=== PATIENT | female | born 1955 | race Caucasian/White ===

== ENCOUNTER 2016-07-24 21:51 | Emergency (ER) | payer BC ==
[~2016-07-24] VITALS: Ht 152.4 cm; Wt 71.5 kg
[~2016-07-24 21:51] MED LIST: ASPI-664 PO; ATOR40TA68 PO; AZIT250T94 PO; BENA10TA48 PO; CHOL2000 PO; FOLI-49 PO; GABA300C16 PO; HYDR-902 PO; METO-429 PO; MOME13HF INHALATION; OMEP40CA3 PO; RES15 PO; [UNRECOGNIZED DRUG - CODE] PO
[2016-07-24 21:54] VITALS: Ht 152.4 cm; Wt 71.5 kg
[2016-07-24] MEDS ORDERED: ALBU18HF INHALATION (22:12)
[2016-07-24] MEDS ORDERED: AMO500 PO (22:12)
[2016-07-24] MEDS ORDERED: BENZ100C70 PO (22:12)
--- NOTE | 2016-07-25 00:09 | ERD ---
ER Documentation Chief Complaint Date/Time DATE: 07/25/16 TIME: 00:07 Chief Complaint cough x 1 month HPI Patient is a 60-year-old female with history of bronchitis and pneumonia presents with cough. She has had cough for the past 1 month. The sputum is green and yellow. She said that it is worsening. She tried Sudafed. She is speaking in full sentences. She had a subjective fever but did not take her temperature. She says that Zithromax does not work and once a prescription for amoxicillin. Her primary doctor is Dr. Crowe and she has a appointment tomorrow. ROS All systems reviewed and are negative except as per history of present illness. Medications Home Meds Active Scripts Benzonatate* (Tessalon Perle*) 100 Mg Capsule, 100 MG PO Q8H Y for COUGH, #20 CAP Prov:PANCHITO ANGULO MD 07/24/16 Amoxicillin* (Amoxicillin*) 500 Mg Cap, 500 MG PO TID for 10 Days, CAP Prov:PANCHITO ANGULO MD 07/24/16 Albuterol Sulfate* (Ventolin HFA*) 18 Gm Hfa.aer.ad, 2 PUFF INHALATION Q4H, #1 INHALER Prov:PANCHITO ANGULO MD 07/24/16 Azithromycin* (Zithromax*) 250 Mg Tablet, 250 MG PO .MARTA DIRECTED, #6 TAB TAKE 500 MG (2 TABS) THE FIRST DAY THEN 250 MG (1 TAB) DAYS 2-5 Prov:JUANCHO OSORIO DO 01/10/16 Hydrocodone/Acetaminophen ([place] 10-325 Tablet) 1 Each Tablet, 1 TAB PO Q6H Y for PAIN, #20 TAB Prov:JUANCHO OSORIO DO 01/10/16 Reported Medications Folic Acid* (Folic Acid*) 1 Mg Tablet, 1 MG PO DAILY, TAB 01/10/16 Tgwbzwdony-Fsvyebinnmljv-Cgniuozp* (Idvowhzoda-Yqwpgllofqfmf-Pshibjgp*) 50-325- 40 Mg Tablet, 1 TAB PO Q4H Y for PAIN, TAB 04/13/15 Mometasone-Formoterol (Dulera) 200-5 Mcg/Inh - 13 Gm Hfa.aer.ad, 2 PUFFS INHALATION BID, #1 INHALER 04/13/15 Temazepam (Restoril) 15 Mg Cap, 15 MG PO QHS Y for INSOMNIA, #30 04/13/15 Cholecalciferol* (Vitamin D3*) 2,000 Unit Cap, 2000 UNIT PO DAILY 04/13/15 Atorvastatin* (Atorvastatin*) 40 Mg Tablet, 40 MG PO HS, TAB 10/24/14 Aspirin* (Aspirin* EC) 81 Mg Tablet.dr, 81 MG PO DAILY, TAB 10/24/14 Gabapentin* (Gabapentin*) 300 Mg Capsule, 300 MG PO BID 09/06/12 Omeprazole* (Prilosec*) 40 Mg Capsule.dr, 40 MG PO DAILY 05/18/12 Benazepril Hcl* (Benazepril Hcl*) 10 Mg Tablet, 10 MG PO DAILY 05/10/12 Metoprolol Tartrate (LOPRESSOR) 50 Mg Tab, 50 MG PO DAILY 05/09/12 Allergies Allergies: Coded Allergies: metoclopramide (Verified Allergy, Mild, 01/10/16) PMhx/Soc History of Surgery: Yes (BENIGN MASS REMOVAL LEFT NECK 2008) Anesthesia Reaction: No Hx Neurological Disorder: No Hx Respiratory Disorders: Yes (PNA, BRONCHITIS) Hx Cardiac Disorders: Yes (hypertension) Hx Psychiatric Problems: No Hx Miscellaneous Medical Probl: No Hx Alcohol Use: No Hx Substance Use: No Hx Tobacco Use: No Smoking Status: Never smoker FmHx Family History: No diabetes Physical Exam Vitals Vital Signs Date Time Temp Pulse Resp B/P Pulse Ox O2 Delivery O2 Flow Rate FiO2 07/24/16 21:54 97.3 72 20 152/80 97 Physical Exam Const: Anxious Head: Atraumatic Eyes: Normal Conjunctiva ENT: Normal External Ears, Nose and Mouth. Neck: Full range of motion..~ No meningismus. Resp: Clear to auscultation bilaterally Cardio: Regular rate and rhythm, no murmurs Abd: Soft, non tender, non distended. Normal bowel sounds Skin: No petechiae or rashes Back: No midline or flank tenderness Ext: No cyanosis, or edema Neur: Awake and alert Psych: Anxious Procedures/MDM Patient is a 60-year-old female presents with what appears to be an acute bronchitis. I do not hear any signs of pneumonia and the patient is speaking in full sentences. She is anxious but I doubt pneumonia, pneumothorax, or pulmonary embolism. I believe outpatient management is appropriate. She is otherwise well-appearing and is speaking in full sentences. I will give her prescription for amoxicillin for 10 days. She will also be given a prescription for Ventolin and Tessalon Perles for cough. She can follow-up with her primary doctor tomorrow to schedule appointment. She will return for any worsening symptoms. Departure Diagnosis: Primary Impression: Bronchitis Additional Impression: Cough Condition: Fair Patient Instructions: Bronchitis, Antiobiotic Treatment (Adult) Additional Instructions: Call your primary care doctor TOMORROW for an appointment during the next 1-2 days.See the doctor sooner or return here if your condition worsens before your appointment time. PANCHITO ANGULO MD Jul 25, 2016 00:08
== END 2016-07-24 22:20 | disposition home or self-care (01) ==
LOC: FTE 21:51
DX: J20.9 Acute bronchitis, unspecified (principal); I10 Essential (primary) hypertension; Z79.82 Long term (current) use of aspirin
CPT/HCPCS: 99284

== ENCOUNTER 2016-08-22 21:28 | Emergency (ER) | payer BC ==
[~2016-08-22] VITALS: Ht 157.5 cm; Wt 70.0 kg
[~2016-08-22 21:28] MED LIST changes: +ALBU18HF INHALATION; +AMO500 PO; +BENZ100C70 PO
[2016-08-22 21:32] VITALS: Ht 157.5 cm; Wt 70.0 kg
[2016-08-22] MEDS ORDERED: LIDOCAINE 2% VISC 15 ML CUP PO ONE (23:30)
[2016-08-22 23:47] LABS: URINE BLOOD (Dip) POC 2+ (NEGATIVE)
--- NOTE | 2016-08-22 23:48 | RADRPT ---
PROCEDURE: XR Chest. CLINICAL INDICATION: Cough. TECHNIQUE: Single frontal chest x-ray. COMPARISON: Chest radiograph 01/10/2016. FINDINGS: The cardiomediastinal silhouette is unremarkable. Mild bibasilar atelectasis is noted. No pneumothorax, pleural effusion or consolidation is seen. No acute osseous abnormality is noted. IMPRESSION: 1. No acute cardiopulmonary abnormality. RPTAT: HFN .Trung Huber MD, MD Date Time Electronically viewed and signed by .Trung Huber MD, on 08/22/2016 23:47 .N/
[2016-08-23] MEDS ORDERED: AZIT250T94 PO (00:17)
[2016-08-23] MEDS ORDERED: magic mouthwash (00:17)
--- NOTE | 2016-08-23 00:25 | ERD ---
ER Documentation Chief Complaint Date/Time DATE: 08/23/16 TIME: 00:19 Chief Complaint burning tongue, cough HPI 60-year-old female with a past medical history of hypertension presents to the ED complaining of a burning sensation in her tongue and a productive cough that started intermittently 2 months ago. Reports that she try taking amoxicillin, Tessalon Perles without relief of her symptoms that was prescribed previously. Denies any recent traveling. Denies any sick contacts. Denies any chest pain, shortness of breath, abdominal pain, nausea, vomiting, dyspnea on exertion, orthopnea, leg swelling. ROS All systems reviewed and are negative except as per history of present illness. Medications Home Meds Active Scripts Azithromycin* (Zithromax*) 250 Mg Tablet, 250 MG PO .ZPACK DIRECTED, #6 TAB TAKE 500 MG (2 TABS) THE FIRST DAY THEN 250 MG (1 TAB) DAYS 2-5 Prov:STACY SNOWDNE PA-C 08/23/16 [magic mouthwash] No Conflict Check Rx: 1 Part viscous lidocaine 2% 1 Part Maalox (do not substitute Kaopectate) 1 Part diphenhydramine 12.5 mg per 5 ml elixir Quantity: 120 ml Sig: Swish, gargle, and spit one to two teaspoonfuls every six hours as needed. May be swallowed if esophageal involvement. Shake well before using. Prov:STACY SNOWDEN PA-C 08/23/16 Benzonatate* (Tessalon Perle*) 100 Mg Capsule, 100 MG PO Q8H Y for COUGH, #20 CAP Prov:PANCHITO ANGULO MD 07/24/16 Amoxicillin* (Amoxicillin*) 500 Mg Cap, 500 MG PO TID for 10 Days, CAP Prov:PANCHITO ANGULO MD 07/24/16 Albuterol Sulfate* (Ventolin HFA*) 18 Gm Hfa.aer.ad, 2 PUFF INHALATION Q4H, #1 INHALER Prov:PANCHITO ANGULO MD 07/24/16 Azithromycin* (Zithromax*) 250 Mg Tablet, 250 MG PO .ZPACK DIRECTED, #6 TAB TAKE 500 MG (2 TABS) THE FIRST DAY THEN 250 MG (1 TAB) DAYS 2-5 Prov:JUANCHO OSORIO DO 01/10/16 Hydrocodone/Acetaminophen ([place] 10-325 Tablet) 1 Each Tablet, 1 TAB PO Q6H Y for PAIN, #20 TAB Prov:JUANCHO OSORIO DO 01/10/16 Reported Medications Folic Acid* (Folic Acid*) 1 Mg Tablet, 1 MG PO DAILY, TAB 01/10/16 Ffsbksjqgf-Igyviyisecbrj-Xcuoxkeq* (Cuovmarxhx-Ktsclbmdttdnn-Acydgeco*) 50-325- 40 Mg Tablet, 1 TAB PO Q4H Y for PAIN, TAB 04/13/15 Mometasone-Formoterol (Dulera) 200-5 Mcg/Inh - 13 Gm Hfa.aer.ad, 2 PUFFS INHALATION BID, #1 INHALER 04/13/15 Temazepam (Restoril) 15 Mg Cap, 15 MG PO QHS Y for INSOMNIA, #30 04/13/15 Cholecalciferol* (Vitamin D3*) 2,000 Unit Cap, 2000 UNIT PO DAILY 04/13/15 Atorvastatin* (Atorvastatin*) 40 Mg Tablet, 40 MG PO HS, TAB 10/24/14 Aspirin* (Aspirin* EC) 81 Mg Tablet.dr, 81 MG PO DAILY, TAB 10/24/14 Gabapentin* (Gabapentin*) 300 Mg Capsule, 300 MG PO BID 09/06/12 Omeprazole* (Prilosec*) 40 Mg Capsule.dr, 40 MG PO DAILY 05/18/12 Benazepril Hcl* (Benazepril Hcl*) 10 Mg Tablet, 10 MG PO DAILY 05/10/12 Metoprolol Tartrate (LOPRESSOR) 50 Mg Tab, 50 MG PO DAILY 05/09/12 Allergies Allergies: Coded Allergies: metoclopramide (Verified Allergy, Mild, 01/10/16) PMhx/Soc History of Surgery: Yes (BENIGN MASS REMOVAL LEFT NECK 2009) Anesthesia Reaction: No Hx Neurological Disorder: No Hx Respiratory Disorders: Yes (PNA, BRONCHITIS) Hx Cardiac Disorders: Yes (hypertension) Hx Psychiatric Problems: No Hx Miscellaneous Medical Probl: No Hx Alcohol Use: No Hx Substance Use: No Hx Tobacco Use: No Smoking Status: Never smoker Physical Exam Vitals Vital Signs Date Time Temp Pulse Resp B/P Pulse Ox O2 Delivery O2 Flow Rate FiO2 08/22/16 21:32 98.2 82 20 136/95 100 Physical Exam Const: Bxn-dby-uyerwpxmr, well-nourished. In no acute distress. Head: Atraumatic, normocephalic Eyes: Normal Conjunctiva without injection. No purulent discharge. PERRL. EOMI ENT: Normal external ear. Ear canal without erythema. Tympanic membrane pearly lawson without effusion or bulging. Nasal canal clear with normal turbinates. Moist oropharynx without tonsillar exudates. Non-erythematous pharynx. Uvula midline. No drooling. No trismus. Neck: Full range of motion. No meningismus. No cervical lymphadenopathy. Resp: Clear to auscultation bilaterally. No wheezing, rhonchi, rales, or crackles. No accessory muscle use. No retractions. Cardio: Regular rate and rhythm. No murmurs, rubs or gallops. Abd: Soft, non tender, non distended. Normal bowel sounds. No palpable masses. No rebound tenderness. No guarding. Skin: No petechiae or rashes Back: No midline tenderness. No CVA tenderness. Ext: No cyanosis, or edema. Neur: Awake and alert. Psych: Normal Mood and Affect Results 24 hrs Laboratory Tests Test 08/22/16 23:47 Bedside Urine pH (LAB) 6.5 Bedside Urine Protein (LAB) 2+ Bedside Urine Glucose (UA) Negative Bedside Urine Ketones (LAB) Trace Bedside Urine Blood 2+ Bedside Urine Nitrite (LAB) Negative Bedside Urine Leukocyte Esterase (L Negative Current Medications Medications (Trade) Dose Ordered Sig/Chiara Route PRN Reason Start Time Stop Time Status Last Admin Dose Admin Lidocaine (Xylocaine (Viscous)) 15 ml ONCE ONCE PO 08/22/16 23:30 08/22/16 23:31 DC 08/23/16 00:01 Procedures/MDM 60-year-old female with a past medical history of hypertension presents to the ED complaining of a cough that started 2 days ago. Reports that her tongue started to burn. No ulcers. No cold sores. Low suspicion for HSV 1 labialis, angioedema or other emergent conditions. Patient felt better after receiving viscous lidocaine. Reports that when she coughs she feels like she has a burning sensation she is urinating. A urine dip was ordered to further evaluate patient. No leukocyte esterase, nitrite was noted. A urine culture be sent. Patient was also instructed to follow-up with her primary care physician for further evaluation and management since patient is taking benazepril. Differentials include a TARSHA inhibitor induced cough versus bronchitis. Patient states that she does get relief with Zithromax therefore that will be prescribed at this time. Patient's physical exam include lungs which were clear to auscultation and a normal pulse oximetry. There is a low suspicion for pneumonia, pneumothorax, mononucleosis, pulmonary embolism, epiglottitis, otitis media, otitis externa, viral/strep pharyngitis, sinusitis, peritonsillar abscess, mastoiditis, retropharyngeal abscess, meningitis, sepsis , acute abdomen or other emergent conditions. Fluids, rest, and symptomatic treatment are recommended for the management of patient's symptoms. Discharge medications: Zithromax, Magic Mouthwash Patient was instructed to return to the ED for any new or worsening symptoms. They should otherwise follow up with the primary care provider within 1-2 days. The patient's questions were answered at the time of discharge. Patient understood and agreed with discharge management. Departure Diagnosis: Primary Impression: Mouth symptom Additional Impression: Cough Condition: Stable Patient Instructions: Parts of the Mouth, Bronchitis, Antiobiotic Treatment ( Adult), Cough, Chronic, Uncertain Cause, (Adult) Referrals: [facility] YOU HAVE RECEIVED A MEDICAL SCREENING EXAM AND THE RESULTS INDICATE THAT YOU DO NOT HAVE A CONDITION THAT REQUIRES URGENT TREATMENT IN THE EMERGENCY DEPARTMENT. FURTHER EVALUATION AND TREATMENT OF YOUR CONDITION CAN WAIT UNTIL YOU ARE SEEN IN YOUR DOCTORS OFFICE WITHIN THE NEXT 1-2 DAYS. IT IS YOUR RESPONSIBILITY TO MAKE AN APPOINTMENT FOR FOLOW-UP CARE. IF YOU HAVE A PRIMARY DOCTOR --you should call your primary doctor and schedule an appointment IF YOU DO NOT HAVE A PRIMARY DOCTOR YOU CAN CALL OUR PHYSICIAN REFERRAL HOTLINE AT IF YOU CAN NOT AFFORD TO SEE A PHYSICIAN YOU CAN CHOSE FROM THE FOLLOWING [facility] CLINICS [facility] [address] [facility]. [facility] [address] [facility]. [facility] [address] [facility] [address] [facility]. [facility] [address] [facility]. [facility] [address] [facility]. [facility] YOU HAVE RECEIVED A MEDICAL SCREENING EXAM AND THE RESULTS INDICATE THAT YOU DO NOT HAVE A CONDITION THAT REQUIRES URGENT TREATMENT IN THE EMERGENCY DEPARTMENT. FURTHER EVALUATION AND TREATMENT OF YOUR CONDITION CAN WAIT UNTIL YOU ARE SEEN IN YOUR DOCTORS OFFICE WITHIN THE NEXT 1-2 DAYS. IT IS YOUR RESPONSIBILITY TO MAKE AN APPOINTMENT FOR FOLOW-UP CARE. IF YOU HAVE A PRIMARY DOCTOR --you should call your primary doctor and schedule and appointment IF YOU DO NOT HAVE A PRIMARY DOCTOR YOU CAN CALL OUR PHYSICIAN REFERRAL HOTLINE AT . IF YOU CAN NOT AFFORD TO SEE A PHYSICIAN YOU CAN CHOSE FROM THE FOLLOWING [facility] INSTITUTIONS: [facility] [address] [place] [address] [facility] [address] [place], [place] [id number] [place] [address] [address] [place] [address] [facility] URGENT CARE/SPECIALTIES Additional Instructions: Call your primary care doctor TOMORROW for an appointment during the next 1-2 days.See the doctor sooner or return here if your condition worsens before your appointment time. STACY SNOWDEN PA-C Aug 23, 2016 00:25
== END 2016-08-23 00:32 | disposition home or self-care (01) ==
LOC: FTE 21:28
DX: K13.29 Other disturbances of oral epithelium, including tongue (principal); R05 Cough; I10 Essential (primary) hypertension; Z79.82 Long term (current) use of aspirin
CPT/HCPCS: 71010; 81003; Z7502; Z7610

== ENCOUNTER 2016-10-27 20:00 | Emergency (ER) | payer BC ==
[~2016-10-27] VITALS: Ht 154.9 cm; Wt 69.5 kg
[~2016-10-27 20:00] MED LIST changes: +magic mouthwash
[2016-10-27 20:11] VITALS: Ht 154.9 cm; Wt 69.5 kg
[2016-10-27] MEDS ORDERED: ALBUTEROL 0.083% (NEB) 2.5 MG/3 ML AMP NEB STA (21:21)
[2016-10-27] MEDS ORDERED: IPRATROPIUM (NEB) 0.5 MG/2.5 ML AMP NEB STA (21:21)
--- NOTE | 2016-10-27 22:27 | RADRPT ---
PROCEDURE: XR Chest. CLINICAL INDICATION: Cough, bronchitis 2 months ago TECHNIQUE: PA and Lateral views of the chest were obtained. COMPARISON: 01/10/2016. FINDINGS: The cardiomediastinal silhouette is within normal limits. Changes of centrolobular emphysema. The l ungs are clear. No signs of pleural fluid or pneumothorax are seen. The osseous structures and soft tissues are unremarkable. IMPRESSION: No evidence for active cardiopulmonary disease. RPTAT: [facility]U Physician Marilu Date Time Electronically viewed and signed by Physician Marilu on 10/27/2016 22:27 RS/
[2016-10-27 23:06] LABS: URINE BLOOD (Dip) POC 2+ (NEGATIVE)
--- NOTE | 2016-10-27 23:40 | ERD ---
ER Documentation Chief Complaint Date/Time DATE: 10/27/16 TIME: 23:37 Chief Complaint cough x 5 days HPI Cough 1 week, productive for green sputum. Patient reports sinus pain, sore throat, and shortness of breath with voice changing. Patient also reports that she is coughing so hard she is having stress incontinence. Patient reports history of bronchitis approximately 4 weeks ago. Patient reports following plan of care with azithromycin, albuterol with improvement of symptoms while on antibiotics but symptoms returned after antibiotic course is complete. Patient has secondary complaint of dysuria starting today. Denies any hematuria , nausea, or vomiting. Patient denies back pain. Shortness of breath, palpitations, or dizziness. ROS All systems reviewed and are negative except as per history of present illness. Medications Home Meds Active Scripts [robutussin ac] No Conflict Check, 5 ML PO Q4 Y for cough and ST, #120 Prov:BETTINA,ANKUR 10/27/16 Amoxicillin* (Amoxicillin*) 500 Mg Cap, 500 MG PO TID for 10 Days, CAP Prov:BETTINA,ANKUR 10/27/16 Azithromycin* (Zithromax*) 250 Mg Tablet, 250 MG PO .ZPACK DIRECTED, #6 TAB TAKE 500 MG (2 TABS) THE FIRST DAY THEN 250 MG (1 TAB) DAYS 2-5 Prov:STACY SNOWDEN PA-C 08/23/16 [magic mouthwash] No Conflict Check Rx: 1 Part viscous lidocaine 2% 1 Part Maalox (do not substitute Kaopectate) 1 Part diphenhydramine 12.5 mg per 5 ml elixir Quantity: 120 ml Sig: Swish, gargle, and spit one to two teaspoonfuls every six hours as needed. May be swallowed if esophageal involvement. Shake well before using. Prov:STACY SNOWDEN PA-C 08/23/16 Benzonatate* (Tessalon Perle*) 100 Mg Capsule, 100 MG PO Q8H Y for COUGH, #20 CAP Prov:PANCHITO ANGULO MD 07/24/16 Amoxicillin* (Amoxicillin*) 500 Mg Cap, 500 MG PO TID for 10 Days, CAP Prov:PANCHITO ANGULO MD 07/24/16 Albuterol Sulfate* (Ventolin HFA*) 18 Gm Hfa.aer.ad, 2 PUFF INHALATION Q4H, #1 INHALER Prov:PANCHITO ANGULO MD 07/24/16 Azithromycin* (Zithromax*) 250 Mg Tablet, 250 MG PO .MARTA DIRECTED, #6 TAB TAKE 500 MG (2 TABS) THE FIRST DAY THEN 250 MG (1 TAB) DAYS 2-5 Prov:JUANCHO OSORIO. DO 01/10/16 Hydrocodone/Acetaminophen ([place] 10-325 Tablet) 1 Each Tablet, 1 TAB PO Q6H Y for PAIN, #20 TAB Prov:LELUBNAOS,FAUSTINOSTOLOS A. DO 01/10/16 Reported Medications Folic Acid* (Folic Acid*) 1 Mg Tablet, 1 MG PO DAILY, TAB 01/10/16 Mnlzxsnhse-Yziaokxowbrbr-Lsgsfeyu* (Pjdaocjrbf-Ugedbonctvvnw-Ptgrtcgn*) 50-325- 40 Mg Tablet, 1 TAB PO Q4H Y for PAIN, TAB 04/13/15 Mometasone-Formoterol (Dulera) 200-5 Mcg/Inh - 13 Gm Hfa.aer.ad, 2 PUFFS INHALATION BID, #1 INHALER 04/13/15 Temazepam (Restoril) 15 Mg Cap, 15 MG PO QHS Y for INSOMNIA, #30 04/13/15 Cholecalciferol* (Vitamin D3*) 2,000 Unit Cap, 2000 UNIT PO DAILY 04/13/15 Atorvastatin* (Atorvastatin*) 40 Mg Tablet, 40 MG PO HS, TAB 10/24/14 Aspirin* (Aspirin* EC) 81 Mg Tablet.dr, 81 MG PO DAILY, TAB 10/24/14 Gabapentin* (Gabapentin*) 300 Mg Capsule, 300 MG PO BID 09/06/12 Omeprazole* (Prilosec*) 40 Mg Capsule.dr, 40 MG PO DAILY 05/18/12 Benazepril Hcl* (Benazepril Hcl*) 10 Mg Tablet, 10 MG PO DAILY 05/10/12 Metoprolol Tartrate (LOPRESSOR) 50 Mg Tab, 50 MG PO DAILY 05/09/12 Allergies Allergies: Coded Allergies: metoclopramide (Verified Allergy, Mild, 01/10/16) PMhx/Soc History of Surgery: Yes (BENIGN MASS REMOVAL LEFT NECK 2008) Anesthesia Reaction: No Hx Neurological Disorder: No Hx Respiratory Disorders: Yes (PNA, BRONCHITIS) Hx Cardiac Disorders: Yes (hypertension) Hx Psychiatric Problems: No Hx Miscellaneous Medical Probl: No Hx Alcohol Use: No Hx Substance Use: No Hx Tobacco Use: No Physical Exam Vitals Vitals stable, triage notes reviewed Physical Exam Const: Well-appearing, well-hydrated, no acute distress Head: Atraumatic Eyes: Normal Conjunctiva ENT: Normal External Ears, Nose and Mouth, mucous membranes moist Neck: Full range of motion..~ No meningismus. Resp: Scattered loose, movable rhonchi, wheezing with forced expiration decreased bases. Cardio: Abd: Skin: Back: Ext: No cyanosis, or edema Neur: Awake and alert Psych: Normal Mood and Affect Results 24 hrs Laboratory Tests Test 10/27/16 23:11 Bedside Urine pH (LAB) 5.5 Bedside Urine Protein (LAB) 2+ Bedside Urine Glucose (UA) Negative Bedside Urine Ketones (LAB) Negative Bedside Urine Blood 2+ Bedside Urine Nitrite (LAB) Negative Bedside Urine Leukocyte Esterase (L Negative Current Medications Medications (Trade) Dose Ordered Sig/Chiara Route PRN Reason Start Time Stop Time Status Last Admin Dose Admin Albuterol (Proventil 0.083% (Neb)) 5 mg ONCE STAT NEB 10/27/16 21:21 10/27/16 21:25 DC 10/27/16 21:44 Ipratropium [place] (Atrovent 0.02% (Neb)) 0.5 mg ONCE STAT NEB 10/27/16 21:21 10/27/16 21:25 DC 10/27/16 21:44 Guaifenesin/ Codeine Phosphate (Robitussin Ac Liquid Cup) 5 ml ONCE ONCE PO 10/28/16 00:00 10/28/16 00:01 DC 10/28/16 00:11 Urinalysis positive for protein and microscopic hematuria, negative for nitrates or leukocytosis, Procedures/MDM PROCEDURE: XR Chest. CLINICAL INDICATION: Cough, bronchitis 2 months ago TECHNIQUE: PA and Lateral views of the chest were obtained. COMPARISON: 01/10/2016. FINDINGS: The cardiomediastinal silhouette is within normal limits. Changes of centrolobular emphysema. The lungs are clear. No signs of pleural fluid or pneumothorax are seen. The osseous structures and soft tissues are unremarkable. IMPRESSION: No evidence for active cardiopulmonary disease. Electronically viewed and signed by Physician Marilu on 10/27/2016 22:27 This pleasant 60-year-old female presents to the emergency department today with symptomatic chronic bronchitis status post antibiotic treatment with azithromycin. Cough improvement while on antibiotic with worsening of cough along with runny nose congestion and headache post antibiotic treatment. Low suspicion for pneumonia, congestive heart failure, asthma exacerbation, respiratory failure, acute [place], or meningitis. Chest x-ray documents centrilobular emphysema changes, patient receives breathing treatment with albuterol and Atrovent and Robitussin AC while in emergency department, will be sent home with amoxicillin 500 mg 1 tab p.o. 3 times daily 10 days, patient reports she has albuterol inhaler at home, return to emergency department for shortness of breath, treatments failing to improve as anticipated, or chest pain , follow-up with primary care physician for reevaluation of chronic lung disease. I feel the patient is stable for discharge at this time. I have discussed results, examination findings, the treatment plan with the patient and family present prior to discharge. Indications for emergent reevaluation, side effects of medication were also discussed. All questions were answered. Patient verbalizes understanding and agrees with plan of care. Departure Diagnosis: Primary Impression: Sinusitis Sinusitis location: unspecified location Chronicity: unspecified Qualified Code: J32.9 - Sinusitis, unspecified chronicity, unspecified location Additional Impression: Cough Patient Instructions: Acute Sinusitis Referrals: [facility] Additional Instructions: Thank you for for coming to [facility] for your care today. Please ask your nurse or provider if you have questions about your care today and do not leave until all your questions have been answered. Please use any medications given as directed and follow-up with your doctor (or the doctor you were referred to) in the next 2-3 days. If you do not have a primary care doctor you may follow up at the [facility] (listed below). You may also use motrin and tylenol as needed for fever and/or pain unless instructed otherwise by your provider or nurse. Indications for more urgent follow-up have been discussed, but you may return to the Emergency Department at ANY time for any worrisome or worsening symptoms. If you have abdominal pain, please know that no test or exam you received is perfect and you should follow up within 8 hours for continued pain. If you had any imaging studies today, such as an X-Ray or CT Scan, these studies will be reviewed later by a radiologist. You will be called if there are important findings that were not identified today, so make sure the contact information you provided at registration is correct. If you received any narcotic pain control medicine today, such as Vicodin, Morphine or Dilaudid, your coordination and judgment may be affected for a number of hours. Please do not drive or operate heavy machinery, and you may want someone to assist you at home. If you were given a prescription for narcotic medication, be aware that it is very addictive- use sparingly and only if necessary. ANKUR DUNBAR Oct 27, 2016 23:40
[2016-10-27] MEDS ORDERED: AMO500 PO (23:42)
[2016-10-27] MEDS ORDERED: [UNRECOGNIZED DRUG - OTHER] PO (23:43)
[2016-10-28] MEDS ORDERED: GUAIFENESIN/CODEINE 5ML CUP PO ONE
[2016-10-28 00:23] VITALS: BP 136/88; PULSE 71; RESP 20; TEMP 98.4
== END 2016-10-28 00:26 | disposition home or self-care (01) ==
LOC: FTE 20:00
DX: J32.9 Chronic sinusitis, unspecified (principal); I10 Essential (primary) hypertension; Z79.82 Long term (current) use of aspirin
CPT/HCPCS: 71020; 81003; 94664; Z7610

== ENCOUNTER 2016-12-23 12:53 | Inpatient (IN) | payer BC ==
[~2016-12-23] VITALS: Ht 154.9 cm; Wt 69.5 kg
[~2016-12-23 12:53] MED LIST changes: +[UNRECOGNIZED DRUG - OTHER] PO
[2016-12-23] MEDS ORDERED: BUS5 PO (14:45)
[2016-12-23] MEDS ORDERED: ALEN70TA30 PO (14:46)
[2016-12-23] MEDS ORDERED: HYDR30CR RC (14:46)
[2016-12-23] MEDS ORDERED: ONDANSETRON 4 MG INJ IV STA (14:49)
[2016-12-23] MEDS ORDERED: ASPIRIN 325 MG TAB PO STA (14:49)
[2016-12-23] MEDS ORDERED: morphine 2 MG INJ IV STA (14:49)
[2016-12-23] MEDS ORDERED: HYDROmorphONE 1 MG/ML SYG IV STA (15:32)
[2016-12-23 15:36] LABS: BASOPHILS % 0.7 % (0.0-2.0); EOSINOPHILS # 0.1 10^3/ul (0.0-0.5); EOSINOPHILS % 1.4 % (0.0-7.0); HEMOGLOBIN 12.7 g/dl (12.0-16.0); LYMPHOCYTES # 1.6 10^3/ul (0.8-2.9); LYMPHOCYTES % 28.1 % (15.0-51.0); MEAN CORPUSCULAR HGB CONC 33.4 g/dl (32.0-37.0); MEAN CORPUSCULAR VOLUME 89.8 fl (82.0-101.0); MEAN PLATELET VOLUME 10.1 fl (7.4-10.4); MONOCYTE # 0.6 10^3/ul (0.3-0.9); MONOCYTES % 10.3 % (0.0-11.0); NEUTROPHILS % 59.3 % (39.0-77.0); PLATELET COUNT 254 10^3/UL (140-415); RED BLOOD COUNT 4.23 10^6/ul (4.20-5.40); RED CELL DISTRIBUTION WIDTH 13.2 % (11.5-14.5); WHITE BLOOD COUNT 5.6 10^3/ul (4.8-10.8)
[2016-12-23 15:51] LABS: INR 0.96; PROTIME 12.8 Sec (12.2-14.2)
[2016-12-23 15:52] LABS: PARTIAL THROMBOPLASTIN TIME 30.9 Sec (25.0-35.0)
--- NOTE | 2016-12-23 15:52 | RADRPT ---
PROCEDURE: XR Chest. CLINICAL INDICATION: Chest pain TECHNIQUE: Single frontal chest x-ray. COMPARISON: 08/22/2016; 10/27/2016 FINDINGS: The lungs are clear. No focal opacification is seen. The cardiomediastinal silhouette is unremarka ble. The osseous structures are unremarkable. Appearances are unchanged when compared to the prior study. IMPRESSION: 1. There is no acute cardiopulmonary process. 2. Stable appearances over time. RPTAT: PP .Suresh Auguste MD, Date Time Electronically viewed and signed by .Suresh Auguste MD, on 12/23/2016 15:52 .B/
[2016-12-23 15:55] LABS: ALANINE AMINOTRANSFERASE 31 IU/L (13-69); ALBUMIN 4.5 g/dl (3.3-4.9); ALBUMIN/GLOBULIN RATIO 1.21; ALKALINE PHOSPHATASE 96 IU/L (42-121); ANION GAP 22 (8-16); ASPARTATE AMINO TRANSFERASE 34 IU/L (15-46); BILIRUBIN,INDIRECT 0.1 mg/dl (0-1.1); BILIRUBIN,TOTAL 0.1 mg/dl (0.2-1.3); BLOOD UREA NITROGEN 12 mg/dl (7-20); CALCIUM 9.3 mg/dl (8.4-10.2); CARBON DIOXIDE 25 mmol/L (21-31); CHLORIDE 104 mmol/L (97-110); CREATINE KINASE 56 IU/L (23-200); CREATININE 0.67 mg/dl (0.44-1.00); GLUCOSE 79 mg/dl (70-220); POTASSIUM 4.3 mmol/L (3.5-5.1); SODIUM 147 mmol/L (135-144); TOTAL PROTEIN 8.2 g/dl (6.1-8.1)
--- NOTE | 2016-12-23 15:57 | ERA ---
ER Documentation Chief Complaint Date/Time DATE: 12/23/16 TIME: 15:50 Chief Complaint CHEST/NECK PAIN AND BURNING FEELING X 3 DAYS HPI This is a 61-year-old female that presents to the emergency department complaining of intermittent left substernal chest pain for the past 10 days. She states that the pain does radiate to her neck and arm. The pain is a pressure-like sensation, 7 out of 10 in intensity. The patient states she has had no fevers or shaking or chills. The patient indicates that she has had no previous cardiac issues, stent placement but did state she had a cardiac angiogram in 2006. The patient indicates that on January 14, 2009 she had a parotid mass removed on the left that was benign. She also indicates that she has had a productive cough with whitish sputum for the past 3 months. She denies any night sweats or recent travel. She states the pain does not radiate to her back. She said no shortness of breath at rest or exertion. She denies any hemoptysis hematemesis or melanotic stools ROS All systems reviewed and are negative except as per history of present illness. Medications Home Meds Reported Medications Alendronate Sodium* (Fosamax*) 70 Mg Tablet, 70 MG PO Q7D, #4 TAB 12/23/16 Hydrocortisone (Proctocream-Hc) 30 Gm Cream.gm., 30 GM RC DIRECTED Y for HEMORRHOID/EPISIOTMY PAIN 12/23/16 Buspirone Hcl* (Buspar*) 5 Mg Tab, 5 MG PO BID, TAB 12/23/16 Folic Acid* (Folic Acid*) 1 Mg Tablet, 1 MG PO DAILY, TAB 01/10/16 Qidzpuxjna-Htxtuboduppbo-Ytkzjrfk* (Ecbhxjpfif-Ppfavsqsovgyy-Rdmqrywd*) 50-325- 40 Mg Tablet, 1 TAB PO Q4H Y for PAIN, TAB 04/13/15 Mometasone-Formoterol (Dulera) 200-5 Mcg/Inh - 13 Gm Hfa.aer.ad, 2 PUFFS INHALATION BID, #1 INHALER 04/13/15 Temazepam (Restoril) 15 Mg Cap, 15 MG PO QHS Y for INSOMNIA, #30 04/13/15 Cholecalciferol* (Vitamin D3*) 2,000 Unit Cap, 2000 UNIT PO DAILY 04/13/15 Atorvastatin* (Atorvastatin*) 40 Mg Tablet, 40 MG PO HS, TAB 10/24/14 Aspirin* (Aspirin* EC) 81 Mg Tablet.dr, 81 MG PO DAILY, TAB 10/24/14 Gabapentin* (Gabapentin*) 300 Mg Capsule, 300 MG PO BID 09/06/12 Omeprazole* (Prilosec*) 40 Mg Capsule.dr, 40 MG PO DAILY 05/18/12 Benazepril Hcl* (Benazepril Hcl*) 10 Mg Tablet, 10 MG PO DAILY 05/10/12 Metoprolol Tartrate (LOPRESSOR) 50 Mg Tab, 50 MG PO DAILY 05/09/12 Discontinued Scripts [robutussin ac] No Conflict Check, 5 ML PO Q4 Y for cough and ST, #120 Prov:BETTINA,ANKUR 10/27/16 Amoxicillin* (Amoxicillin*) 500 Mg Cap, 500 MG PO TID for 10 Days, CAP Prov:BETTINA,ANKUR 10/27/16 Azithromycin* (Zithromax*) 250 Mg Tablet, 250 MG PO .CHRISTINECK DIRECTED, #6 TAB TAKE 500 MG (2 TABS) THE FIRST DAY THEN 250 MG (1 TAB) DAYS 2-5 Prov:STACY SNOWDEN PA-C 08/23/16 [magic mouthwash] No Conflict Check Rx: 1 Part viscous lidocaine 2% 1 Part Maalox (do not substitute Kaopectate) 1 Part diphenhydramine 12.5 mg per 5 ml elixir Quantity: 120 ml Sig: Swish, gargle, and spit one to two teaspoonfuls every six hours as needed. May be swallowed if esophageal involvement. Shake well before using. Prov:STACY SNOWDEN PA-C 08/23/16 Benzonatate* (Tessalon Perle*) 100 Mg Capsule, 100 MG PO Q8H Y for COUGH, #20 CAP Prov:PANCHITO ANGULO MD 07/24/16 Amoxicillin* (Amoxicillin*) 500 Mg Cap, 500 MG PO TID for 10 Days, CAP Prov:PANCHITO ANGULO MD 07/24/16 Albuterol Sulfate* (Ventolin HFA*) 18 Gm Hfa.aer.ad, 2 PUFF INHALATION Q4H, #1 INHALER Prov:PANCHITO ANGULO MD 07/24/16 Azithromycin* (Zithromax*) 250 Mg Tablet, 250 MG PO .GrettaPAJIM DIRECTED, #6 TAB TAKE 500 MG (2 TABS) THE FIRST DAY THEN 250 MG (1 TAB) DAYS 2-5 Prov:KEISHABELLAJUANCHO CindyBerenice DEMARCO 01/10/16 Hydrocodone/Acetaminophen ([place] 10-325 Tablet) 1 Each Tablet, 1 TAB PO Q6H Y for PAIN, #20 TAB Prov:JUANCHO OSORIO DO 01/10/16 Allergies Allergies: Coded Allergies: metoclopramide (Verified Allergy, Mild, 12/23/16) PMhx/Soc History of Surgery: Yes (BENIGN MASS REMOVAL LEFT NECK 2008) Anesthesia Reaction: No Hx Neurological Disorder: No Hx Respiratory Disorders: Yes (PNA, BRONCHITIS) Hx Cardiac Disorders: Yes (hypertension) Hx Psychiatric Problems: No Hx Miscellaneous Medical Probl: No Hx Alcohol Use: No Hx Substance Use: No Hx Tobacco Use: No Smoking Status: Never smoker Physical Exam Vitals Vital Signs Date Time Temp Pulse Resp B/P Pulse Ox O2 Delivery O2 Flow Rate FiO2 12/23/16 12:55 98.0 87 18 158/74 99 Physical Exam Constitutional:Well-developed. Well-nourished. HEENT:Normocephalic. Atraumatic.Pupils were equal round reactive to light. Moist mucous membranes.No tonsillar exudates. Neck: No nuchal rigidity. No lymphadenopathy. No posterior cervical spine tenderness or step-offs. Previous surgical incision scar is clean dry and intact over the left parotid region with no palpable masses Respiratory: Not using accessory muscles of respiration.Lungs were clear to auscultation bilaterally. No rhonchi. No rales. No wheezing. Cardiovascular: Regular rate regular rhythm.No murmurs. No rubs were appreciated.S1, S2 normal. Distal pulses are palpable 2+ bilaterally. GI: Abdomen was soft. Nontender. Non Distended. No pulsatile abdominal masses or bruits. No rebound. No guarding. Bowel sounds were present and normal. Muscle skeletal: Full range of motion of both the upper and lower extremities bilaterally.Normal muscle tone.No assymetrical calf tenderness or swelling. Skin: No petechia, no purpura. No lesions on the palms or the soles of the feet. No maculopapular rash. NEURO: Patient was alert, awake, orientated x3.No facial droop. Gait observed and normal with no ataxia.Speech had regular rate and rhythm. No focal neurological deficits. Result Diagram: 12/23/16 1430 Results 24 hrs Laboratory Tests Test 12/23/16 14:30 White Blood Count 5.610^3/ul Red Blood Count 4.2310^6/ul Hemoglobin 12.7g/dl Hematocrit 38.0% Mean Corpuscular Volume 89.8fl Mean Corpuscular Hemoglobin 30.0pg Mean Corpuscular Hemoglobin Concent 33.4g/dl Red Cell Distribution Width 13.2% Platelet Count 85189^3/UL Mean Platelet Volume 10.1fl Neutrophils % 59.3% Lymphocytes % 28.1% Monocytes % 10.3% Eosinophils % 1.4% Basophils % 0.7% Nucleated Red Blood Cells % 0.0/100WBC Neutrophils # (Manual) 3.310^3/ul Lymphocytes # 1.610^3/ul Monocytes # 0.610^3/ul Eosinophils # 0.110^3/ul Basophils # 0.010^3/ul Nucleated Red Blood Cells # 0.010^3/ul Current Medications Medications (Trade) Dose Ordered Sig/Chiara Route PRN Reason Start Time Stop Time Status Last Admin Dose Admin Aspirin (Aspirin) 325 mg ONCE STAT PO 12/23/16 14:49 12/23/16 15:02 DC 12/23/16 15:19 Morphine Sulfate (morphine) 2 mg ONCE STAT IV 12/23/16 14:49 12/23/16 15:33 DC 12/23/16 15:18 Ondansetron HCl (Zofran Inj) 4 mg ONCE STAT IV 12/23/16 14:49 12/23/16 15:02 DC 12/23/16 15:19 Hydromorphone HCl (Dilaudid) 1 mg ONCE STAT IV 12/23/16 15:32 12/23/16 15:33 DC Procedures/MDM The patient presented to the emergency department with chest pain. My clinical evaluation and workup was to distinguish minor causes of chest pain from acute life threatening conditions such as myocardial infarction, pulmonary embolism, aortic dissection, esophageal rupture, cardiac tamponade. The patient was placed on a personnel monitor and continuous pulse oximetry. IV access established by nursing staff. 12 Lead EKG tracing ordered and reviewed by myself showed: Normal sinus rhythm of 72 bpm and no arrhythmia. MN interval normal. QRS duration normal. No ST segment elevation No ST segment depression. No changes consistent with acute ischemia. The patient was very concerned that there was an underlying mass of the left parotid region. I was unable to appreciate this on physical exam and therefore did obtain a CT scan of the patient's neck soft tissue which showed no masses or abscesses. The patient had had a productive cough for the past 3 months. I obtained a chest radiograph which showed no infiltrates pneumothorax or pleural effusions. She had no exposure or risk factors for tuberculosis. The patient received aspirin. This did not improve her pain. Therefore she was given Dilaudid she states morphine she has adverse reactions to which includes a rash. Zofran was given as an antipyretic. The patient will be admitted for observation for further evaluation into her cardiac chest pain. Departure Diagnosis: Primary Impression: Chest pain Qualified Code: R07.9 - Chest pain, unspecified type Condition: Serious COLE HU Dec 23, 2016 15:57
[2016-12-23 16:07] LABS: B-TYPE NATRIURETIC PEPTIDE 85 PG/ML (0-125)
[2016-12-23 16:10] LABS: CK-MB < 0.22 ng/ml (0.0-2.4); TROPONIN-I < 0.012 ng/ml (0.00-0.12)
--- NOTE | 2016-12-23 16:24 | RADRPT ---
PROCEDURE: CT scan of the neck without contrast. CLINICAL INDICATION: pain; lump TECHNIQUE: CT scan of the neck was performed. The patient was examined without the use of intrave nous iodinated contrast. No reported complications occurred. One or more of the following dose re duction techniques were used: Automated exposure control, Adjustment of the mA and/or kV according t o patient size, and/or use of iterative reconstruction technique. DOSE: CTDI = 8 mGy and the DLP = 195 mGy-cm. COMPARISON: None available FINDINGS: Evaluation of the soft tissues and vasculature is limited without contrast. Skin marker placed at the left parotid. No gross left parotid mass visualized. No periparotid inf lammatory stranding or calcifications seen. No right parotid mass identified. No evidence of cervical lymphadenopathy. The bilateral submandibular glands are unremarkable The thyroid gland is unremarkable. No airway narrowing The bilateral prestyloid parapharyngeal spaces and retropharyngeal spaces are un remarkable. The visualized paranasal sinuses and mastoids are clear. Degenerative changes of the spine with the disk osteophyte complex and uncovertebral osteophytes at C4-5 causing mild spinal canal stenosis with severe right foraminal stenosis. There is also mild spi nal canal stenosis C5-6 with moderate right foraminal narrowing. The visualized lung apices are clear. IMPRESSION: No gross evidence of a parotid mass on this noncontrast exam. No CT evidence of parotid sialoadenitis or sialolith. Degenerative changes of the cervical spine. RPTAT: AA .Daryl Inman MD, Date Time Electronically viewed and signed by .Daryl Inman MD, MD on 12/23/2016 16:24 .T/
[2016-12-23] MEDS ORDERED: METOCLOPRAMIDE 10 MG INJ IV PRN (17:30)
[2016-12-23] MEDS ORDERED: BISACODYL 10 MG SUPP PR PRN (17:30)
[2016-12-23] MEDS ORDERED: ONDANSETRON 4 MG INJ IV PRN (17:30)
[2016-12-23] MEDS ORDERED: ZOLPIDEM 5 MG TAB PO PRN (17:30)
[2016-12-23] MEDS ORDERED: DOCUSATE SODIUM 100 MG CAP PO PRN (17:30)
[2016-12-23] MEDS ORDERED: MAGNESIUM HYDROXIDE 30ML CUP PO PRN (17:30)
[2016-12-23] MEDS ORDERED: HYDROCODONE/APAP (5/325) TAB PO PRN (17:30)
[2016-12-23] MEDS ORDERED: ACETAMINOPHEN 325 MG TAB PO PRN ×2 (17:30)
[2016-12-23] MEDS ORDERED: NACL 0.9% 3 ML SYG IV SCH (17:30)
[2016-12-23] MEDS ORDERED: BISACODYL (EC) 5 MG TAB PO PRN (17:30)
[2016-12-23] MEDS ORDERED: ONDANSETRON 4 MG TAB PO PRN (17:30)
[2016-12-23] MEDS ORDERED: ALENDRONATE 70 MG TAB PO SCH (17:30)
[2016-12-23 18:37] VITALS: TEMP 98.7
--- NOTE | 2016-12-23 18:48 | HP ---
Date/Time of Note Date/Time of Note DATE: 12/23/16 TIME: 18:43 Assessment/Plan VTE Prophylaxis VTE Prophylaxis Intervention: SCD's Lines/Catheters IV Catheter Type (from Nrsg): Peripheral IV Assessment/Plan Assessment/Plan 61 yo F with HTN, HL, anxiety presents with chest pain. D/dx includes ACS v anxiety v other. HEART score 4. PLAN ACS r/o with serial trops tele TTE BNP given trace pedal edema cont home meds likely cards cs in AM for stress eval HPI/ROS Admit Date/Time Admit Date/Time Hx of Present Illness CC chest pain HPI: 61 yo F with pmhx HTN, HL, anxiety presents with 10 days of chest pain. States this has been happening 3 times daily when she feels "anxious." No SOB. + chronic LE swelling with no recent changes. PMH/Family/Social Past Medical History as per HPI Social History Smoking Status: Never smoker Exam/Review of Systems Vital Signs Vitals Vital Signs Date Time Temp Pulse Resp B/P Pulse Ox O2 Delivery O2 Flow Rate FiO2 12/23/16 18:37 98.7 57 16 143/77 99 Room Air Exam Exam NAD EOMI mmm no mrg lungs clear abd soft no rashes trace pedal edema labs reviewed Labs Result Diagram: 12/23/16 1430 12/23/16 1430 Medications Medications Current Medications Ondansetron HCl (Zofran Tab) 4 mg Q6H PRN PO NAUSEA AND/OR VOMITING; Start at 17:30; Status UNV Ondansetron HCl (Zofran Inj) 4 mg Q6H PRN IV NAUSEA AND/OR VOMITING; Start at 17:30 Acetaminophen (Tylenol Tab) 650 mg Q6H PRN PO PAIN LEVEL 1-3 OR FEVER; Start at 17:30 Acetaminophen/ Hydrocodone Bitart ([place] (5/325)) 1 tab Q6H PRN PO PAIN LEVEL 4 -6; Start 12/23/16 at 17:30 Docusate Sodium (Colace) 100 mg Q12H PRN PO CONSTIPATION; Start 12/23/16 at 17: 30; Status UNV Magnesium Hydroxide (Milk Of Mag) 30 ml DAILY PRN PO CONSTIPATION; Start at 17:30; Status UNV Bisacodyl (Dulcolax) 5 mg DAILY PRN PO CONSTIPATION; Start 12/23/16 at 17:30 Bisacodyl (Dulcolax Supp) 10 mg DAILY PRN [place] CONSTIPATION; Start 12/23/16 at 17 :30 Enoxaparin Sodium (Lovenox) 40 mg DAILY SC ; Start 12/24/16 at 09:00 Alendronate Sodium (Fosamax) 70 mg Q7D PO ; Start 12/23/16 at 17:30; Status UNV Aspirin (Halfprin) 81 mg DAILY PO ; Start 12/24/16 at 09:00; Status UNV Atorvastatin Calcium (Lipitor) 40 mg HS PO ; Start 12/23/16 at 21:00; Status UNV Benazepril HCl (Lotensin) 10 mg DAILY PO ; Start 12/24/16 at 09:00; Status UNV Buspirone HCl (Buspar) 5 mg BID PO ; Start 12/23/16 at 21:00; Status UNV Cholecalciferol (Vitamin D) 2,000 unit DAILY PO ; Start 12/24/16 at 09:00; Status UNV Folic Acid (Folic Acid) 1 mg DAILY PO ; Start 12/24/16 at 09:00; Status UNV Gabapentin (Neurontin) 300 mg BID PO ; Start 12/23/16 at 21:00; Status UNV Metoprolol Tartrate (Lopressor) 50 mg DAILY PO ; Start 12/24/16 at 09:00 Miscellaneous Information 2 puffs BID INHALATION ; Start 12/23/16 at 21:00; Status UNV Miscellaneous Information 40 mg DAILY PO ; Start 12/24/16 at 09:00; Status UNV Miscellaneous Information 15 mg QHS PRN PO INSOMNIA; Start 12/23/16 at 17:30; Status UNV MARIA ISABEL BUSH MD Dec 23, 2016 18:48
[2016-12-23 20:26] VITALS: BP 140/74; RESP 20
[2016-12-23 20:35] VITALS: PULSE 64
[2016-12-23] MEDS: BUSPIRONE 5 MG TAB PO SCH (21:00)
[2016-12-23 21:40] LABS: CREATINE KINASE 44 IU/L (23-200)
[2016-12-23 21:54] LABS: CK-MB < 0.22 ng/ml (0.0-2.4); TROPONIN-I < 0.012 ng/ml (0.00-0.12)
[2016-12-23] MEDS: ATORVASTATIN 40 MG TAB PO SCH (21:55)
[2016-12-23] MEDS: GUAIFENESIN/DM 5ML CUP PO PRN (21:55)
[2016-12-23] MEDS: GABAPENTIN 300 MG CAP PO SCH (21:56)
[2016-12-23 22:23] VITALS: Ht 154.9 cm; Wt 69.5 kg
[2016-12-23] MEDS ORDERED: HYDROCODONE/APAP (10/325) TAB PO PRN (22:30)
[2016-12-23] MEDS: SALMETEROL/FLUTICASONE 250/50 INHA INH SCH (23:02)
[2016-12-23] MEDS: ONDANSETRON 4 MG INJ IV PRN (23:02)
[2016-12-24] VITALS (11 sets, daily range): BP systolic 104–139; BP diastolic 58–74; PULSE 58–82; RESP 16–20
[2016-12-24 01:34] LABS: CREATINE KINASE 42 IU/L (23-200)
[2016-12-24] MEDS: morphine 2 MG INJ IV PRN ×2 (01:58→09:10)
[2016-12-24 01:59] LABS: CK-MB < 0.22 ng/ml (0.0-2.4); TROPONIN-I < 0.012 ng/ml (0.00-0.12)
[2016-12-24] MEDS: PANTOPRAZOLE (EC) 40 MG TAB PO SCH (05:34)
[2016-12-24] MEDS: FOLIC ACID 1 MG TAB PO SCH (08:41)
[2016-12-24] MEDS: CHOLECALCIFEROL 2,000 UNIT CAP PO SCH (08:41)
[2016-12-24] MEDS: METOPROLOL 50 MG TAB PO SCH (08:43)
[2016-12-24] MEDS: ASPIRIN (EC) 81 MG TAB PO SCH (08:44)
[2016-12-24 08:48] LABS: BASOPHILS % 0.7 % (0.0-2.0); EOSINOPHILS # 0.1 10^3/ul (0.0-0.5); EOSINOPHILS % 2.4 % (0.0-7.0); HEMATOCRIT 34.1 % (37.0-47.0); HEMOGLOBIN 11.6 g/dl (12.0-16.0); LYMPHOCYTES % 37.2 % (15.0-51.0); MEAN CORPUSCULAR HEMOGLOBIN 31.3 pg (29.0-33.0); MEAN CORPUSCULAR VOLUME 91.9 fl (82.0-101.0); MEAN PLATELET VOLUME 9.9 fl (7.4-10.4); MONOCYTE # 0.6 10^3/ul (0.3-0.9); MONOCYTES % 10.8 % (0.0-11.0); NEUTROPHILS % 48.5 % (39.0-77.0); PLATELET COUNT 209 10^3/UL (140-415); RED BLOOD COUNT 3.71 10^6/ul (4.20-5.40); RED CELL DISTRIBUTION WIDTH 12.9 % (11.5-14.5); WHITE BLOOD COUNT 5.5 10^3/ul (4.8-10.8)
[2016-12-24] MEDS: BENAZEPRIL 10 MG TAB PO SCH (08:57)
[2016-12-24] MEDS: SALMETEROL/FLUTICASONE 250/50 INHA INH SCH ×2 (09:00→20:52)
[2016-12-24] MEDS: GABAPENTIN 300 MG CAP PO SCH ×2 (09:00→20:53)
[2016-12-24] MEDS: BUSPIRONE 5 MG TAB PO SCH ×2 (09:00→20:53)
[2016-12-24] MEDS: ENOXAPARIN 40 MG/0.4 ML SYG SC SCH (09:00)
[2016-12-24] MEDS: ONDANSETRON 4 MG INJ IV PRN (09:09)
[2016-12-24 09:39] LABS: CHOL/HDL RATIO 3.5 RATIO; CREATININE 0.76 mg/dl (0.44-1.00); MAGNESIUM 1.9 mg/dl (1.7-2.5)
[2016-12-24 09:52] LABS: CREATINE KINASE 36 IU/L (23-200)
[2016-12-24 10:06] LABS: CK-MB < 0.22 ng/ml (0.0-2.4); TROPONIN-I < 0.012 ng/ml (0.00-0.12)
--- NOTE | 2016-12-24 10:27 | RADRPT ---
Echocardiogram Report Patient Name: JARROD TOMLIN Gender: Female Date: 1955 Study Date: 24-Dec-2016 [place] Engraver: Talha Bowman [facility] Location: [id number] Ref. Physician: MARIA ISABEL BUSH Quality: Adequate Procedures: Transthoracic echocardiogram with complete 2D, M-Mode, and doppler examination. Indications: Chest Pain. 2D/M Mode Doppler Measurement Value Normal Ranges Measurement Value Normal Ranges LVIDd 2D 3.4 3.5 - 5.6 cm AV Peak Trent 1.2 m/sec LVIDs 2D 1.8 2.1 - 4.1 cm AV Peak PG 6.0 mmHg FS 2D 47.2 % LVOT Peak Trent 1.1 m/sec LVPWd 2D 0.9 0.6 - 1.1 cm LVOT Peak PG 4.0 mmHg IVSd 2D 0.9 0.6 - 1.1 cm MV E Peak Trent 0.6 m/sec IVS/LVPW 2D 1.0 MV A Peak Trent 0.7 m/sec AoR Diam 2D 2.8 2.0 - 3.7 cm MV E/A 0.9 LA/Ao 2D 1 0 - 1 MV Decel Time 155 msec EDV 2D 39.7 cm3 MV E/A 0.9 ESV 2D 5.8 cm3 TR Peak Trent 2.7 m/sec LA Dimen 2D 2.9 2.3 - 4.0 cm TR Peak PG 29.0 mmHg RVSP 32.0 mmHg Findings Left Ventricle: Normal left ventricular systolic function. Normal left ventricular cavity size. Normal left ventricular wall thickness. Ejection fraction is visually estimated at 60 %. Tissue Doppler/Mitral Doppler indices are consistent with impaired relaxation (Stage I diastolic dysfunction). Right Ventricle: Normal right ventricular size. Normal right ventricular systolic function. Left Atrium: The left atrium is normal in size. Right Atrium: The right atrium is normal in size. Mitral Valve: Normal appearance and function of the mitral valve with trace physiologic regurgitation. Aortic Valve: Normal appearance of the aortic valve. No significant aortic stenosis or insufficiency. Tricuspid Valve: Normal appearance of the tricuspid valve. Estimated peak PA systolic pressure 33 mmHg. There is trace tricuspid regurgitation. Pulmonic Valve: Pulmonic valve not well visualized. Pericardium: Normal pericardium with no significant pericardial effusion. Aorta: Normal aortic root. IVC: Normal size and normal respiratory collapse consistent with normal right atrial pressure. Conclusions 1.Normal left ventricular systolic function. Normal left ventricular cavity size. Normal left ventricular wall thickness. Ejection fraction is visually estimated at 60 %. Tissue Doppler/Mitral Doppler indices are consistent with impaired relaxation (Stage I diastolic dysfunction). 2.No significant valvular stenosis or regurgitation seen. 3.Estimated peak PA systolic pressure 33 mmHg based on RA pressure of 3 mmHg. Electronically Signed By: Reno Donahue 24-Dec-2016 10:26:54 -0700 Patient Name: JARROD TOMLIN Study Date: 24-Dec-2016 [id number]
[2016-12-24] MEDS ORDERED: REGADENOSON 0.4 MG/5 ML SYG IV ONE (11:00)
--- NOTE | 2016-12-24 11:07 | CONS ---
Date/Time of Note Date/Time of Note DATE: 12/24/16 TIME: 10:59 Assessment/Plan Assessment/Plan Chief Complaint/Hosp Course Chest pain: Atypical nonexertional symptoms. Trops negative, echo normal. However with risk factors and nonobstructive CAD previously. Stress test is appropriate HTN HL Nonobstructive CAD: per report 30% disease in unknown vessel ~10 yrs ago -stress MPI in am -NPO after midnight -ASA, lipitor -metoprolol, benazepril Problems: Consultation Date/Type/Reason Admit Date/Time Date of Consultation: Dec 24, 2016 Type of Consultation: Cardiology Reason for Consultation Chest pain Referring Provider: MARIA ISABEL BUSH MD Hx of Present Illness 61 yo F with a h/o nonobstructive CAD (per family cath ~10 yrs ago with 30% disease), HTN, HL, who presented with chest pain. The pt notes that for the past 10 days she has intermittent episodes of chest pressure which lasts for a few minutes at a time and is not associated with exertion. Her symptoms come on at random times and she feels that they are related to anxiety. Her last cath was based on her request and not for an DC per the pt. She denies SOB, orthopnea , PND, edema. She would like to go home but is agreeable to stress testing. per HPI, otherwise negative Past Medical History per HPI Social History Smoking Status: Never smoker Exam/Review of Systems Vital Signs Vitals Vital Signs Date Time Temp Pulse Resp B/P Pulse Ox O2 Delivery O2 Flow Rate FiO2 12/24/16 08:00 82 12/24/16 04:51 97.1 19 104/58 100 12/23/16 18:37 Room Air Intake and Output 12/23/16 12/23/16 12/24/16 15:00 23:00 07:00 Intake Total 250 ml Balance 250 ml Exam Constitutional: alert, oriented Psych: nl mood/affect, no complaints Head: atraumatic, normocephalic Eyes: nl conjunctiva ENMT: nl external ears & nose Neck: No jvd Respiratory: clear to auscultation, No crackles/rales, No wheezing Cardiovascular: regular rate and rhythm, No edema, No systolic murmur Gastrointestinal: non-tender, soft Musculoskeletal: nl extremities to inspection Extremities: normal pulses Neurological: nl mental status, nl speech Results sinus, no ST changes Result Diagram: 12/24/16 0702 12/24/16 0702 Results 24 hrs Laboratory Tests Test 12/23/16 14:30 12/23/16 21:10 12/24/16 00:41 12/24/16 07:02 White Blood Count 5.6 5.5 Red Blood Count 4.23 3.71 L Hemoglobin 12.7 11.6 L Hematocrit 38.0 34.1 L Mean Corpuscular Volume 89.8 91.9 Mean Corpuscular Hemoglobin 30.0 31.3 Mean Corpuscular Hemoglobin Concent 33.4 34.0 Red Cell Distribution Width 13.2 12.9 Platelet Count 254 209 Mean Platelet Volume 10.1 # 9.9 Neutrophils % 59.3 48.5 Lymphocytes % 28.1 37.2 Monocytes % 10.3 10.8 Eosinophils % 1.4 2.4 Basophils % 0.7 0.7 Nucleated Red Blood Cells % 0.0 0.0 Neutrophils # (Manual) 3.3 2.6 Lymphocytes # 1.6 2.0 Monocytes # 0.6 0.6 Eosinophils # 0.1 0.1 Basophils # 0.0 0.0 Nucleated Red Blood Cells # 0.0 0.0 Prothrombin Time 12.8 Prothrombin Time Ratio 1.0 INR International Normalized Ratio 0.96 Activated Partial Thromboplast Time 30.9 Sodium Level 147 H 142 Potassium Level 4.3 4.0 Chloride Level 104 101 Carbon Dioxide Level 25 27 Anion Gap 22 H 18 H Blood Urea Nitrogen 12 18 Creatinine 0.67 0.76 Glucose Level 79 79 Calcium Level 9.3 9.0 Total Bilirubin 0.1 L Direct Bilirubin 0.00 Indirect Bilirubin 0.1 Aspartate Amino Transf (AST/SGOT) 34 Alanine Aminotransferase (ALT/SGPT) 31 Alkaline Phosphatase 96 Creatine Kinase 56 44 42 36 Creatine Kinase Index 0.4 0.5 0.5 0.6 Creatinine Kinase MB (Mass) < 0.22 < 0.22 < 0.22 < 0.22 Troponin I < 0.012 < 0.012 < 0.012 < 0.012 B-Type Natriuretic Peptide 85 111 Total Protein 8.2 H Albumin 4.5 Globulin 3.70 H Albumin/Globulin Ratio 1.21 Magnesium Level 1.9 Triglycerides Level 128 Cholesterol Level 155 LDL Cholesterol, Calculated 85 HDL Cholesterol 44 Cholesterol/HDL Ratio 3.5 Medications Medications Current Medications Ondansetron HCl (Zofran Tab) 4 mg Q6H PRN PO NAUSEA AND/OR VOMITING; Start at 17:30 Ondansetron HCl (Zofran Inj) 4 mg Q6H PRN IV NAUSEA AND/OR VOMITING Last administered on 12/24/16 09:09; Admin Dose 4 MG; Start 12/23/16 at 17:30 Acetaminophen (Tylenol Tab) 650 mg Q6H PRN PO PAIN LEVEL 1-3 OR FEVER; Start at 17:30 Acetaminophen/ Hydrocodone Bitart ([place] (5/325)) 1 tab Q6H PRN PO PAIN LEVEL 4 -6; Start 12/23/16 at 17:30 Docusate Sodium (Colace) 100 mg Q12H PRN PO CONSTIPATION; Start 12/23/16 at 17: 30 Magnesium Hydroxide (Milk Of Mag) 30 ml DAILY PRN PO CONSTIPATION; Start at 17:30 Bisacodyl (Dulcolax) 5 mg DAILY PRN PO CONSTIPATION; Start 12/23/16 at 17:30 Bisacodyl (Dulcolax Supp) 10 mg DAILY PRN [place] CONSTIPATION; Start 12/23/16 at 17 :30 Enoxaparin Sodium (Lovenox) 40 mg DAILY SC ; Start 12/24/16 at 09:00 Alendronate Sodium (Fosamax) 70 mg Q7D PO ; Start 12/23/16 at 17:30; Status Future Hold Aspirin (Halfprin) 81 mg DAILY PO Last administered on 12/24/16 08:44; Admin Dose 81 MG; Start 12/24/16 at 09:00 Atorvastatin Calcium (Lipitor) 40 mg HS PO Last administered on 12/23/16 21:55 ; Admin Dose 40 MG; Start 12/23/16 at 21:00 Benazepril HCl (Lotensin) 10 mg DAILY PO ; Start 12/24/16 at 09:00 Buspirone HCl (Buspar) 5 mg BID PO ; Start 12/23/16 at 21:00 Cholecalciferol (Vitamin D) 2,000 unit DAILY PO Last administered on 12/24/16 08:41; Admin Dose 2,000 UNIT; Start 12/24/16 at 09:00 Folic Acid (Folic Acid) 1 mg DAILY PO Last administered on 12/24/16 08:41; Admin Dose 1 MG; Start 12/24/16 at 09:00 Gabapentin (Neurontin) 300 mg BID PO Last administered on 12/23/16 21:56; Admin Dose 300 MG; Start 12/23/16 at 21:00 Metoprolol Tartrate (Lopressor) 50 mg DAILY PO Last administered on 12/24/16 08:43; Admin Dose 50 MG; Start 12/24/16 at 09:00 Salmeterol Xinafoate/ Fluticasone (Advair 250/50 Diskus) 1 inh BID INH Last administered on 12/23/16 23:02; Admin Dose 1 INH; Start 12/23/16 at 21:00 Pantoprazole (Protonix Tab) 40 mg DAILY@06 PO Last administered on 12/24/16 05 :34; Admin Dose 40 MG; Start 12/24/16 at 06:00 Zolpidem Tartrate (Ambien) 5 mg QHS PRN PO INSOMNIA; Start 12/23/16 at 17:30 Guaifenesin/ Dextromethorphan (Robitussin Dm Liquid Cup) 10 ml Q6 PRN PO cough Last administered on 12/23/16 21:55; Admin Dose 10 ML; Start 12/23/16 at 21:30 Acetaminophen/ Hydrocodone Bitart ([place] (10/325)) 1 tab Q6H PRN PO pain Last administered on 12/23/16 23:02; Admin Dose 1 TAB; Start 12/23/16 at 22:30 Morphine Sulfate (morphine) 2 mg Q4H PRN IV pain Last administered on 09:10; Admin Dose 2 MG; Start 12/24/16 at 01:30 VJ GREY Dec 24, 2016 11:07
--- NOTE | 2016-12-24 13:51 | PN ---
Date/Time of Note Date/Time of Note DATE: 12/24/16 TIME: 13:50 Assessment/Plan VTE Prophylaxis VTE Prophylaxis Intervention: SCD's Lines/Catheters IV Catheter Type (from Nrsg): Saline Lock Assessment/Plan Assessment/Plan 61 yo F with HTN, HL, anxiety presents with chest pain. D/dx includes ACS v anxiety v other. HEART score 4. PLAN ruled out for ACS. TTE with nl EF stress test in AM. if negative will dc home cont home meds Subjective 24 Hr Interval Summary Free Text/Dictation No more chest pain Exam/Review of Systems Vital Signs Vitals Vital Signs Date Time Temp Pulse Resp B/P Pulse Ox O2 Delivery O2 Flow Rate FiO2 12/24/16 13:00 97.7 65 17 139/72 96 Room Air Intake and Output 12/23/16 12/23/16 12/24/16 15:00 23:00 07:00 Intake Total 250 ml Balance 250 ml Exam nad no mrg lungs clear abd soft no rashes Results Result Diagram: 12/24/16 0702 12/24/16 0702 Results 24 hrs Laboratory Tests Test 12/23/16 14:30 12/23/16 21:10 12/24/16 00:41 12/24/16 07:02 White Blood Count 5.6 5.5 Red Blood Count 4.23 3.71 L Hemoglobin 12.7 11.6 L Hematocrit 38.0 34.1 L Mean Corpuscular Volume 89.8 91.9 Mean Corpuscular Hemoglobin 30.0 31.3 Mean Corpuscular Hemoglobin Concent 33.4 34.0 Red Cell Distribution Width 13.2 12.9 Platelet Count 254 209 Mean Platelet Volume 10.1 # 9.9 Neutrophils % 59.3 48.5 Lymphocytes % 28.1 37.2 Monocytes % 10.3 10.8 Eosinophils % 1.4 2.4 Basophils % 0.7 0.7 Nucleated Red Blood Cells % 0.0 0.0 Neutrophils # (Manual) 3.3 2.6 Lymphocytes # 1.6 2.0 Monocytes # 0.6 0.6 Eosinophils # 0.1 0.1 Basophils # 0.0 0.0 Nucleated Red Blood Cells # 0.0 0.0 Prothrombin Time 12.8 Prothrombin Time Ratio 1.0 INR International Normalized Ratio 0.96 Activated Partial Thromboplast Time 30.9 Sodium Level 147 H 142 Potassium Level 4.3 4.0 Chloride Level 104 101 Carbon Dioxide Level 25 27 Anion Gap 22 H 18 H Blood Urea Nitrogen 12 18 Creatinine 0.67 0.76 Glucose Level 79 79 Calcium Level 9.3 9.0 Total Bilirubin 0.1 L Direct Bilirubin 0.00 Indirect Bilirubin 0.1 Aspartate Amino Transf (AST/SGOT) 34 Alanine Aminotransferase (ALT/SGPT) 31 Alkaline Phosphatase 96 Creatine Kinase 56 44 42 36 Creatine Kinase Index 0.4 0.5 0.5 0.6 Creatinine Kinase MB (Mass) < 0.22 < 0.22 < 0.22 < 0.22 Troponin I < 0.012 < 0.012 < 0.012 < 0.012 B-Type Natriuretic Peptide 85 111 Total Protein 8.2 H Albumin 4.5 Globulin 3.70 H Albumin/Globulin Ratio 1.21 Hemoglobin A1c 4.9 Magnesium Level 1.9 Triglycerides Level 128 Cholesterol Level 155 LDL Cholesterol, Calculated 85 HDL Cholesterol 44 Cholesterol/HDL Ratio 3.5 Medications Medications Current Medications Ondansetron HCl (Zofran Tab) 4 mg Q6H PRN PO NAUSEA AND/OR VOMITING; Start at 17:30 Ondansetron HCl (Zofran Inj) 4 mg Q6H PRN IV NAUSEA AND/OR VOMITING Last administered on 12/24/16t 09:09; Admin Dose 4 MG; Start 12/23/16 at 17:30 Acetaminophen (Tylenol Tab) 650 mg Q6H PRN PO PAIN LEVEL 1-3 OR FEVER; Start at 17:30 Acetaminophen/ Hydrocodone Bitart ([place] (5/325)) 1 tab Q6H PRN PO PAIN LEVEL 4 -6; Start 12/23/16 at 17:30 Docusate Sodium (Colace) 100 mg Q12H PRN PO CONSTIPATION; Start 12/23/16 at 17: 30 Magnesium Hydroxide (Milk Of Mag) 30 ml DAILY PRN PO CONSTIPATION; Start at 17:30 Bisacodyl (Dulcolax) 5 mg DAILY PRN PO CONSTIPATION; Start 12/23/16 at 17:30 Bisacodyl (Dulcolax Supp) [address] CONSTIPATION; Start 12/23/16 at 17 :30 Enoxaparin Sodium (Lovenox) 40 mg DAILY SC ; Start 12/24/16 at 09:00 Alendronate Sodium (Fosamax) 70 mg Q7D PO ; Start 12/23/16 at 17:30; Status Future Hold Aspirin (Halfprin) 81 mg DAILY PO Last administered on 12/24/16 08:44; Admin Dose 81 MG; Start 12/24/16 at 09:00 Atorvastatin Calcium (Lipitor) 40 mg HS PO Last administered on 12/23/16 21:55 ; Admin Dose 40 MG; Start 12/23/16 at 21:00 Benazepril HCl (Lotensin) 10 mg DAILY PO ; Start 12/24/16 at 09:00 Buspirone HCl (Buspar) 5 mg BID PO ; Start 12/23/16 at 21:00 Cholecalciferol (Vitamin D) 2,000 unit DAILY PO Last administered on 12/24/16 08:41; Admin Dose 2,000 UNIT; Start 12/24/16 at 09:00 Folic Acid (Folic Acid) 1 mg DAILY PO Last administered on 12/24/16 08:41; Admin Dose 1 MG; Start 12/24/16 at 09:00 Gabapentin (Neurontin) 300 mg BID PO Last administered on 12/23/16 21:56; Admin Dose 300 MG; Start 12/23/16 at 21:00 Metoprolol Tartrate (Lopressor) 50 mg DAILY PO Last administered on 12/24/16 08:43; Admin Dose 50 MG; Start 12/24/16 at 09:00 Salmeterol Xinafoate/ Fluticasone (Advair 250/50 Diskus) 1 inh BID INH Last administered on 12/23/16 23:02; Admin Dose 1 INH; Start 12/23/16 at 21:00 Pantoprazole (Protonix Tab) 40 mg DAILY@06 PO Last administered on 12/24/16 05 :34; Admin Dose 40 MG; Start 12/24/16 at 06:00 Zolpidem Tartrate (Ambien) 5 mg QHS PRN PO INSOMNIA; Start 12/23/16 at 17:30 Guaifenesin/ Dextromethorphan (Robitussin Dm Liquid Cup) 10 ml Q6 PRN PO cough Last administered on 12/23/16 21:55; Admin Dose 10 ML; Start 12/23/16 at 21:30 Acetaminophen/ Hydrocodone Bitart ([place] (10/325)) 1 tab Q6H PRN PO pain Last administered on 12/23/16 23:02; Admin Dose 1 TAB; Start 12/23/16 at 22:30 Morphine Sulfate (morphine) 2 mg Q4H PRN IV pain Last administered on 09:10; Admin Dose 2 MG; Start 12/24/16 at 01:30 MARIA ISAEBL BUSH MD Dec 24, 2016 13:51
[2016-12-24] MEDS: ATORVASTATIN 40 MG TAB PO SCH (20:53)
[2016-12-25] VITALS (15 sets, daily range): BP systolic 98–175; BP diastolic 53–81; PULSE 50–73; RESP 16–20
[2016-12-25] MEDS: PANTOPRAZOLE (EC) 40 MG TAB PO SCH (05:07)
[2016-12-25] MEDS: SALMETEROL/FLUTICASONE 250/50 INHA INH SCH ×2 (08:25→20:48)
[2016-12-25] MEDS: FOLIC ACID 1 MG TAB PO SCH (08:26)
[2016-12-25] MEDS: BENAZEPRIL 10 MG TAB PO SCH ×2 (08:28→12:26)
[2016-12-25] MEDS: METOPROLOL 50 MG TAB PO SCH ×2 (08:28→10:13)
[2016-12-25] MEDS: BUSPIRONE 5 MG TAB PO SCH ×3 (08:28→20:50)
[2016-12-25] MEDS: ASPIRIN (EC) 81 MG TAB PO SCH (08:28)
[2016-12-25] MEDS: GABAPENTIN 300 MG CAP PO SCH ×2 (08:29→20:48)
[2016-12-25] MEDS: ENOXAPARIN 40 MG/0.4 ML SYG SC SCH (08:29)
[2016-12-25] MEDS: CHOLECALCIFEROL 2,000 UNIT CAP PO SCH (08:29)
--- NOTE | 2016-12-25 09:50 | CONS ---
Date/Time of Note Date/Time of Note DATE: 12/25/16 TIME: 09:48 Assessment/Plan Assessment/Plan Chief Complaint/Hosp Course Chest pain: Atypical nonexertional symptoms. Trops negative, echo normal. However with risk factors and nonobstructive CAD previously. Stress test is appropriate HTN HL Nonobstructive CAD: per report 30% disease in unknown vessel ~10 yrs ago -stress MPI this am. If negative can be d/c-ed from my perspective -ASA, lipitor -metoprolol, benazepril Problems: Consultation Date/Type/Reason Admit Date/Time Dec 23, 2016 at 17:01 Initial Consult Date 12/24/16 Type of Consultation: Cardiology Referring Provider: MARIA ISABEL BUSH MD 24 HR Interval Summary Free Text/Dictation No o/n events. Pt very upset this am claiming nobody has seen her or addressed her issues besides me. She wants an MRI of her parotid. Exam/Review of Systems Vital Signs Vitals Vital Signs Date Time Temp Pulse Resp B/P Pulse Ox O2 Delivery O2 Flow Rate FiO2 12/25/16 08:42 56 12/25/16 08:30 114/58 12/25/16 08:08 99.0 18 94 12/24/16 16:17 Room Air Intake and Output 12/24/16 12/24/16 12/25/16 15:00 23:00 07:00 Intake Total 900 ml Balance 900 ml Exam Constitutional: alert, oriented Head: atraumatic, normocephalic Neck: No jvd Respiratory: clear to auscultation, No crackles/rales Cardiovascular: regular rate and rhythm, No edema, No systolic murmur Gastrointestinal: non-tender, soft Neurological: nl mental status, nl speech Results Result Diagram: 12/24/16 0702 12/24/16 0702 Medications Medications Current Medications Ondansetron HCl (Zofran Tab) 4 mg Q6H PRN PO NAUSEA AND/OR VOMITING; Start at 17:30 Ondansetron HCl (Zofran Inj) 4 mg Q6H PRN IV NAUSEA AND/OR VOMITING Last administered on 12/24/16t 09:09; Admin Dose 4 MG; Start 12/23/16 at 17:30 Acetaminophen (Tylenol Tab) 650 mg Q6H PRN PO PAIN LEVEL 1-3 OR FEVER; Start at 17:30 Acetaminophen/ Hydrocodone Bitart ([place] (5/325)) 1 tab Q6H PRN PO PAIN LEVEL 4 -6; Start 12/23/16 at 17:30 Docusate Sodium (Colace) 100 mg Q12H PRN PO CONSTIPATION; Start 12/23/16 at 17: 30 Magnesium Hydroxide (Milk Of Mag) 30 ml DAILY PRN PO CONSTIPATION; Start at 17:30 Bisacodyl (Dulcolax) 5 mg DAILY PRN PO CONSTIPATION; Start 12/23/16 at 17:30 Bisacodyl (Dulcolax Supp) 10 mg DAILY PRN [place] CONSTIPATION; Start 12/23/16 at 17 :30 Enoxaparin Sodium (Lovenox) 40 mg DAILY SC ; Start 12/24/16 at 09:00 Alendronate Sodium (Fosamax) 70 mg Q7D PO ; Start 12/23/16 at 17:30; Status Future Hold Aspirin (Halfprin) 81 mg DAILY PO Last administered on 12/24/16 08:44; Admin Dose 81 MG; Start 12/24/16 at 09:00 Atorvastatin Calcium (Lipitor) 40 mg HS PO Last administered on 12/24/16 20:53 ; Admin Dose 40 MG; Start 12/23/16 at 21:00 Benazepril HCl (Lotensin) 10 mg DAILY PO ; Start 12/24/16 at 09:00 Buspirone HCl (Buspar) 5 mg BID PO ; Start 12/23/16 at 21:00 Cholecalciferol (Vitamin D) 2,000 unit DAILY PO Last administered on 12/24/16 08:41; Admin Dose 2,000 UNIT; Start 12/24/16 at 09:00 Folic Acid (Folic Acid) 1 mg DAILY PO Last administered on 12/25/16 08:26; Admin Dose 1 MG; Start 12/24/16 at 09:00 Gabapentin (Neurontin) 300 mg BID PO Last administered on 12/24/16 20:53; Admin Dose 300 MG; Start 12/23/16 at 21:00 Metoprolol Tartrate (Lopressor) 50 mg DAILY PO Last administered on 12/24/16 08:43; Admin Dose 50 MG; Start 12/24/16 at 09:00 Salmeterol Xinafoate/ Fluticasone (Advair 250/50 Diskus) 1 inh BID INH Last administered on 12/23/16 23:02; Admin Dose 1 INH; Start 12/23/16 at 21:00 Pantoprazole (Protonix Tab) 40 mg DAILY@06 PO Last administered on 12/25/16 05 :07; Admin Dose 40 MG; Start 12/24/16 at 06:00 Zolpidem Tartrate (Ambien) 5 mg QHS PRN PO INSOMNIA; Start 12/23/16 at 17:30 Guaifenesin/ Dextromethorphan (Robitussin Dm Liquid Cup) 10 ml Q6 PRN PO cough Last administered on 12/23/16 21:55; Admin Dose 10 ML; Start 12/23/16 at 21:30 Acetaminophen/ Hydrocodone Bitart ([place] (10/325)) 1 tab Q6H PRN PO pain Last administered on 12/23/16 23:02; Admin Dose 1 TAB; Start 12/23/16 at 22:30 Morphine Sulfate (morphine) 2 mg Q4H PRN IV pain Last administered on 09:10; Admin Dose 2 MG; Start 12/24/16 at 01:30 VJ GREY Dec 25, 2016 09:49
[2016-12-25] MEDS ORDERED: REGADENOSON 0.4 MG/5 ML SYG ONE (10:22)
--- NOTE | 2016-12-25 11:05 | OPR ---
Date/Time of Note Date/Time of Note DATE: 12/25/16 TIME: 11:04 Operative Report Free Text/Dictation Nuclear medicine myocardial perfusion imaging: Date: 12/25/2016 Indication: Chest pain After informed consent, the patient was given IV Lexiscan. Pt was monitored for a total of 8 minutes post-infusion without any sings of arrhythmias. Patient had abdominal discomfort and chest "heaviness" but no EKG changes. Hemodynamics remained stable throughout. Please refer to separate note for imaging results. VJ GREY Dec 25, 2016 11:05
[2016-12-25] MEDS: GUAIFENESIN/DM 5ML CUP PO PRN (12:42)
--- NOTE | 2016-12-25 14:41 | PN ---
Date/Time of Note Date/Time of Note DATE: 12/25/16 TIME: 14:38 Assessment/Plan VTE Prophylaxis VTE Prophylaxis Intervention: LMWH Lines/Catheters IV Catheter Type (from Nrsg): Saline Lock Assessment/Plan Chief Complaint/Hosp Course Assessment/Plan: 61 yo F with HTN, HL, anxiety presents with chest pain. D/dx includes ACS v anxiety v other. HEART score 4, and left neck pain. 1. Chest pain: Has ruled out for ACS. TTE with nl EF -Follow-up results of cardiac stress test, pending - cont home meds 2. 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 She still complaining of some left neck discomfort and pain, she is worried there may be recurrence of the parotid mass. CT soft tissue of neck performed 2 days ago was negative for any parotid abnormalities. -Go ahead and order MRI of the neck, patient is very adamant about having this done, to further assess Problems: Subjective 24 Hr Interval Summary Free Text/Dictation Patient complaining of some neck abnormality. Upset about not having full workup done yet. Seen by cardiology team this morning, had stress test earlier this morning. Exam/Review of Systems Vital Signs Vitals Vital Signs Date Time Temp Pulse Resp B/P Pulse Ox O2 Delivery O2 Flow Rate FiO2 12/25/16 13:13 65 12/25/16 12:28 146/79 12/25/16 12:17 98.6 20 99 12/24/16 16:17 Room Air Intake and Output 12/24/16 12/24/16 12/25/16 15:00 23:00 07:00 Intake Total 900 ml Balance 900 ml Exam Sitting in bed, in moderate distress Pupils equal round reactive to light, extraocular muscles intact no mrg lungs clear abd soft no rashes Results Result Diagram: 12/24/16 0702 12/24/16 0702 Medications Medications Current Medications Ondansetron HCl (Zofran Tab) 4 mg Q6H PRN PO NAUSEA AND/OR VOMITING; Start at 17:30 Ondansetron HCl (Zofran Inj) 4 mg Q6H PRN IV NAUSEA AND/OR VOMITING Last administered on 12/24/16t 09:09; Admin Dose 4 MG; Start 12/23/16 at 17:30 Acetaminophen (Tylenol Tab) 650 mg Q6H PRN PO PAIN LEVEL 1-3 OR FEVER; Start at 17:30 Acetaminophen/ Hydrocodone Bitart ([place] (5/325)) 1 tab Q6H PRN PO PAIN LEVEL 4 -6; Start 12/23/16 at 17:30 Docusate Sodium (Colace) 100 mg Q12H PRN PO CONSTIPATION; Start 12/23/16 at 17: 30 Magnesium Hydroxide (Milk Of Mag) 30 ml DAILY PRN PO CONSTIPATION; Start at 17:30 Bisacodyl (Dulcolax) 5 mg DAILY PRN PO CONSTIPATION; Start 12/23/16 at 17:30 Bisacodyl (Dulcolax Supp) 10 mg DAILY PRN [place] CONSTIPATION; Start 12/23/16 at 17 :30 Enoxaparin Sodium (Lovenox) 40 mg DAILY SC ; Start 12/24/16 at 09:00 Alendronate Sodium (Fosamax) 70 mg Q7D PO ; Start 12/23/16 at 17:30; Status Future Hold Aspirin (Halfprin) 81 mg DAILY PO Last administered on 12/24/16 08:44; Admin Dose 81 MG; Start 12/24/16 at 09:00 Atorvastatin Calcium (Lipitor) 40 mg HS PO Last administered on 12/24/16 20:53 ; Admin Dose 40 MG; Start 12/23/16 at 21:00 Benazepril HCl (Lotensin) 10 mg DAILY PO Last administered on 12/25/16 12:26; Admin Dose 10 MG; Start 12/24/16 at 09:00 Buspirone HCl (Buspar) 5 mg BID PO ; Start 12/23/16 at 21:00 Cholecalciferol (Vitamin D) 2,000 unit DAILY PO Last administered on 12/24/16 08:41; Admin Dose 2,000 UNIT; Start 12/24/16 at 09:00 Folic Acid (Folic Acid) 1 mg DAILY PO Last administered on 12/25/16 08:26; Admin Dose 1 MG; Start 12/24/16 at 09:00 Gabapentin (Neurontin) 300 mg BID PO Last administered on 12/24/16 20:53; Admin Dose 300 MG; Start 12/23/16 at 21:00 Metoprolol Tartrate (Lopressor) 50 mg DAILY PO Last administered on 12/25/16 10:13; Admin Dose 50 MG; Start 12/24/16 at 09:00 Salmeterol Xinafoate/ Fluticasone (Advair 250/50 Diskus) 1 inh BID INH Last administered on 12/23/16 23:02; Admin Dose 1 INH; Start 12/23/16 at 21:00 Pantoprazole (Protonix Tab) 40 mg DAILY@06 PO Last administered on 12/25/16 05 :07; Admin Dose 40 MG; Start 12/24/16 at 06:00 Zolpidem Tartrate (Ambien) 5 mg QHS PRN PO INSOMNIA; Start 12/23/16 at 17:30 Guaifenesin/ Dextromethorphan (Robitussin Dm Liquid Cup) 10 ml Q6 PRN PO cough Last administered on 12/25/16 12:42; Admin Dose 10 ML; Start 12/23/16 at 21:30 Acetaminophen/ Hydrocodone Bitart ([place] (10/325)) 1 tab Q6H PRN PO pain Last administered on 12/23/16 23:02; Admin Dose 1 TAB; Start 12/23/16 at 22:30 Morphine Sulfate (morphine) 2 mg Q4H PRN IV pain Last administered on 09:10; Admin Dose 2 MG; Start 12/24/16 at 01:30 CHARO STAHL Dec 25, 2016 14:41
--- NOTE | 2016-12-25 17:31 | RADRPT ---
PROCEDURE: LEXISCAN MYOCARDIAL PERFUSION STUDY CLINICAL INDICATION: 61-year-old patient with chest pain. TECHNIQUE: Lexiscan 0.4 mg intravenously separate acquisition, gated myocardial perfusion SPECT us ing 29.1 mCi intravenously at stress and 10.1 mCi intravenously at rest was performed using the rest /stress sequence. Poststress SPECT images were obtained in the supine position. COMPARISON: No prior studies. FINDINGS: Perfusion images reveal no evidence of perfusion defects. Poststress gated SPECT images demonstrate no wall motion abnormalities. IMPRESSION: 1. No evidence of perfusion defects. 2. No wall motion abnormalities. 3. The left ventricle ejection fraction at stress is overestimated at >70% due to small cardiac vol ume. RPTAT: QQ Physician Chanel Date Time Electronically viewed and signed by Physician Chanel on 12/26/2016 10:04 /
--- NOTE | 2016-12-25 17:42 | RADRPT ---
PROCEDURE: MR Neck without contrast CLINICAL INDICATION: Left-sided neck swelling and discharge from the left ear. Left parotid mass re moval 01/14/2009. COMPARISON: CT 12/23/2016. TECHNIQUE: Multiaxial multi-sequence MRI of the neck. Images acquired on a 3.0 Amelia magnet. FINDINGS: Limited evaluation in the absence of intravenous contrast. Surgical and / or treatment changes: Expected findings related to left parotidectomy. 8 x 5 mm nodul e with low T1 and high T2 signal is seen inferior to the surgical resection bed (series 4, image 11 and series 6, image 11). Aerodigestive tract: No primary mass identified in the upper aerodigestive tract. Apparent medial p osition of the left to vocal cord likely reflects respiratory motion during symmetric appearance on CT from 12/23/2016. Lymph nodes: Nonspecific left level IV lymph node measuring 12 x 7 mm. Nonspecific sub-centimeter ly mph nodes are scattered throughout the neck bilaterally. No pathologically enlarged are morphologic ally suspicious adenopathy. Salivary glands: The left parotid gland has been removed. No mass or edema within the remaining roseanne ivary glands identified. Thyroid gland: Normal. Other soft tissues: Normal. Skull base and foramina: Normal. Paranasal sinuses: Clear. Mastoids and middle ears: Clear. Major vascular structures: Normal. Bones: Normal. Lung apices: Clear. Visualized brain parenchyma: Normal. Additional comment: None. IMPRESSION: Limited examination with the absence of intravenous contrast. Nonspecific 8 x 4 mm nodule anterior t o the left parotidectomy surgical resection bed which is incompletely characterized. No other mass i dentified. RPTAT: PP Physician Deven Date Time Electronically viewed and signed by Physician Deven on 12/25/2016 17:42 LG/
[2016-12-25] MEDS: ATORVASTATIN 40 MG TAB PO SCH (20:48)
--- NOTE | 2016-12-25 21:54 | RADRPT ---
PROCEDURE: MRI Neck with contrast. CLINICAL INDICATION: Left parotid mass, history of prior mass TECHNIQUE: Axial T1, axial T2, axial STIR, axial T1 postcontrast, sagittal T1, coronal T1, albarran l T1 postcontrast, coronal STIR. 10 cc of intravenous Magnevist was administered... . CT neck 12/23 COMPARISON: Noncontrast examination of the same day FINDINGS: The nasopharynx, oropharynx, hypopharynx, and next demonstrate normal patency and contour without ev idence of a soft tissue mass or abnormal enhancement. The bilateral submandibular and sublingual gl ands appear unremarkable. The right parotid gland appears within normal limits. The left parotid g land demonstrates postoperative change, with partial superficial gland resection. There is a nonspe cific 8 x 5 mm enhancing nodule at the peripheral margin of the left parotid gland in the area of pr ior resection. The thyroid gland is normal in size, shape, and signal intensity on all pulse sequences. There is de generative changes of the mid cervical spine, with foraminal narrowing at C4-C5 and C5-C6. IMPRESSION: 1. Status post partial left parotid gland resection. 2. 8 x 5 mm enhancing nodule in the region of the left parotid resection bed, nonspecific. This ma y reflect a brandi-parotid lymph node. Neoplastic recurrence is not excluded. Correlation with prior pathology is recommended, and follow-up or further evaluation is suggested as clinically warranted. RPTAT: HBST .Dilip Goldberg MD, Date Time Electronically viewed and signed by .Dilip Goldberg MD, MD on 12/25/2016 21:53 .T/
--- NOTE | 2016-12-26 11:35 | DS ---
Date/Time of Note Date/Time of Note DATE: 12/26/16 TIME: 11:30 Discharge Summary Admission/Discharge Info Admit Date/Time Dec 23, 2016 at 17:01 Discharge Date/Time Dec 25, 2016 at 22:30 Discharge Diagnosis 1. Chest pain: Has ruled out for ACS. 2. 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 3. htn 4. BRONCHITIS 5. Nonobstructive CAD 6. High cholesterol Patient Condition: Stable Hospital Course 61-year-old female that presented to the emergency department complaining of intermittent left substernal chest pain for the past 10 days. She states that the pain does radiate to her neck and arm. The pain is a pressure-like sensation, 7 out of 10 in intensity. The patient states she has had no fevers or shaking or chills. The patient indicates that she has had no previous cardiac issues, stent placement but did state she had a cardiac angiogram in 2006. The patient indicates that on January 14, 2009 she had a parotid mass removed on the left that was benign. She also indicates that she has had a productive cough with whitish sputum for the past 3 months. She denies any night sweats or recent travel. She states the pain does not radiate to her back. She said no shortness of breath at rest or exertion. She denies any hemoptysis hematemesis or melanotic stools. So patient was admitted to telemetry floor, seen by cardiology team. She ruled out for acute coronary syndrome. She also had echocardiogram that showed normal ejection fraction and the following results: Conclusions 1. Normal left ventricular systolic function. Normal left ventricular cavity size. Normal left ventricular wall thickness. Ejection fraction is visually estimated at 60 %. Tissue Doppler/Mitral Doppler indices are consistent with impaired relaxation (Stage I diastolic dysfunction). 2. No significant valvular stenosis or regurgitation seen. 3. Estimated peak PA systolic pressure 33 mmHg based on RA pressure of 3 mmHg. Patient was concerned about her history of parotid mass in the past and wanted to have imaging studies performed of the neck. She did end up having MRI of the neck with IV contrast that showed the followin. Status post partial left parotid gland resection. 2. 8 x 5 mm enhancing nodule in the region of the left parotid resection bed, nonspecific. This may reflect a brandi-parotid lymph node. Neoplastic recurrence is not excluded. Correlation with prior pathology is recommended, and follow-up or further evaluation is suggested as clinically warranted. Patient received copies, CD copies, of this imaging study, and was encouraged to follow-up with her primary care doctor as well as ear nose and throat doctor for further evaluation of the enhancing nodule. Particularly given her prior history of parotid mass which was benign in the past. Patient will be discharged home today in improved condition, see below for full list of discharge medications. Home Meds Reported Medications Hydrocortisone (Proctocream-Hc) 30 Gm Cream.gm., 30 GM RC DIRECTED Y for HEMORRHOID/EPISIOTMY PAIN 12/23/16 Buspirone Hcl* (Buspar*) 5 Mg Tab, 5 MG PO BID, TAB 12/23/16 Folic Acid* (Folic Acid*) 1 Mg Tablet, 1 MG PO DAILY, TAB 01/10/16 Mometasone-Formoterol (Dulera) 200-5 Mcg/Inh - 13 Gm Hfa.aer.ad, 2 PUFFS INHALATION BID, #1 INHALER 04/13/15 Cholecalciferol* (Vitamin D3*) 2,000 Unit Cap, 2000 UNIT PO DAILY 04/13/15 Atorvastatin* (Atorvastatin*) 40 Mg Tablet, 40 MG PO HS, TAB 10/24/14 Aspirin* (Aspirin* EC) 81 Mg Tablet.dr, 81 MG PO DAILY, TAB 10/24/14 Gabapentin* (Gabapentin*) 300 Mg Capsule, 300 MG PO BID 09/06/12 Omeprazole* (Prilosec*) 40 Mg Capsule.dr, 40 MG PO DAILY 05/18/12 Benazepril Hcl* (Benazepril Hcl*) 10 Mg Tablet, 10 MG PO DAILY 05/10/12 Metoprolol Tartrate (LOPRESSOR) 50 Mg Tab, 50 MG PO DAILY 05/09/12 Discontinued Reported Medications Alendronate Sodium* (Fosamax*) 70 Mg Tablet, 70 MG PO Q7D, #4 TAB 12/23/16 Fzdhdkunem-Iiqveslzyaptt-Fvirfahf* (Xjlciradjo-Vqtmfbbzzqlid-Bttmzszz*) 50-325- 40 Mg Tablet, 1 TAB PO Q4H Y for PAIN, TAB 04/13/15 Temazepam (Restoril) 15 Mg Cap, 15 MG PO QHS Y for INSOMNIA, #30 04/13/15 Discontinued Scripts [robutussin ac] No Conflict Check, 5 ML PO Q4 Y for cough and ST, #120 Prov:BETTINA,ANKUR 10/27/16 Amoxicillin* (Amoxicillin*) 500 Mg Cap, 500 MG PO TID for 10 Days, CAP Prov:BETTINA,ANKUR 10/27/16 Azithromycin* (Zithromax*) 250 Mg Tablet, 250 MG PO .ZPACK DIRECTED, #6 TAB TAKE 500 MG (2 TABS) THE FIRST DAY THEN 250 MG (1 TAB) DAYS 2-5 Prov:STACY SNOWDEN PA-C 08/23/16 [magic mouthwash] No Conflict Check Rx: 1 Part viscous lidocaine 2% 1 Part Maalox (do not substitute Kaopectate) 1 Part diphenhydramine 12.5 mg per 5 ml elixir Quantity: 120 ml Sig: Swish, gargle, and spit one to two teaspoonfuls every six hours as needed. May be swallowed if esophageal involvement. Shake well before using. Prov:STACY SNWODEN PA-C 08/23/16 Benzonatate* (Tessalon Perle*) 100 Mg Capsule, 100 MG PO Q8H Y for COUGH, #20 CAP Prov:PANCHITO ANGULO MD 07/24/16 Amoxicillin* (Amoxicillin*) 500 Mg Cap, 500 MG PO TID for 10 Days, CAP Prov:PANCHITO ANGULO MD 07/24/16 Albuterol Sulfate* (Ventolin HFA*) 18 Gm Hfa.aer.ad, 2 PUFF INHALATION Q4H, #1 INHALER Prov:PANCHITO ANGULO MD 07/24/16 Azithromycin* (Zithromax*) 250 Mg Tablet, 250 MG PO .ZPACK DIRECTED, #6 TAB TAKE 500 MG (2 TABS) THE FIRST DAY THEN 250 MG (1 TAB) DAYS 2-5 Prov:JUANCHO OSORIO DO 01/10/16 Hydrocodone/Acetaminophen (Creola 10-325 Tablet) 1 Each Tablet, 1 TAB PO Q6H Y for PAIN, #20 TAB Prov:JUANCHO OSORIO DO 01/10/16 Primary Care Provider Latisha Crowe Time spent on discharge: > 30 minutes CHARO STAHL Dec 26, 2016 11:35
== END 2016-12-25 22:30 | disposition home or self-care (01) | DRG 313 ==
LOC: E/R 12:53 → MS4 17:01
PROVIDERS: ADMIT Internal Medicine; ATTEND Internal Medicine
DX: R07.89 Other chest pain (principal); I25.10 Atherosclerotic heart disease of native coronary artery without angina pectoris; I10 Essential (primary) hypertension; M54.2 Cervicalgia; J40 Bronchitis, not specified as acute or chronic; E78.00 Pure hypercholesterolemia, unspecified; Z79.82 Long term (current) use of aspirin
CPT/HCPCS: 70490; 70540; 70542; 71010; 78452; 80048; 80053; 80061; 82550; 82553; 83036; 83735; 83880; 84484; 85025; 85610; 85730; 93005; 93017; 93306; 96374; 96375; A9500; A9505; J1650; J2270; J2405; J2785

== ENCOUNTER 2017-01-09 19:47 | Emergency (ER) | payer BC ==
[~2017-01-09] VITALS: Ht 160 cm; Wt 68.0 kg
[~2017-01-09 19:47] MED LIST changes: -ALBU18HF INHALATION; -AMO500 PO; -AZIT250T94 PO; -BENZ100C70 PO; +BUS5 PO; -HYDR-902 PO; +HYDR30CR RC; -RES15 PO; -[UNRECOGNIZED DRUG - CODE] PO; -[UNRECOGNIZED DRUG - OTHER] PO; -magic mouthwash
[2017-01-09 19:53] VITALS: Ht 160 cm; Wt 68.0 kg
[2017-01-09] MEDS ORDERED: VENL75CA89 PO (22:43)
[2017-01-09 22:46] LABS: BASOPHILS % 0.7 % (0.0-2.0); EOSINOPHILS # 0.1 10^3/ul (0.0-0.5); EOSINOPHILS % 1.7 % (0.0-7.0); HEMATOCRIT 39.4 % (37.0-47.0); HEMOGLOBIN 13.6 g/dl (12.0-16.0); LYMPHOCYTES % 32.4 % (15.0-51.0); MEAN CORPUSCULAR HEMOGLOBIN 30.6 pg (29.0-33.0); MEAN CORPUSCULAR HGB CONC 34.5 g/dl (32.0-37.0); MEAN CORPUSCULAR VOLUME 88.7 fl (82.0-101.0); MEAN PLATELET VOLUME 10.7 fl (7.4-10.4); MONOCYTE # 0.7 10^3/ul (0.3-0.9); MONOCYTES % 11.5 % (0.0-11.0); NEUTROPHILS % 53.5 % (39.0-77.0); PLATELET COUNT 172 10^3/UL (140-415); RED BLOOD COUNT 4.44 10^6/ul (4.20-5.40); RED CELL DISTRIBUTION WIDTH 12.5 % (11.5-14.5)
[2017-01-09 22:53] LABS: POSITIVE DIFF @See below
[2017-01-09 23:04] LABS: ANION GAP 17 (8-16); BLOOD UREA NITROGEN 19 mg/dl (7-20); CALCIUM 10.1 mg/dl (8.4-10.2); CARBON DIOXIDE 24 mmol/L (21-31); CHLORIDE 104 mmol/L (97-110); CREATININE 0.74 mg/dl (0.44-1.00); GLUCOSE 93 mg/dl (70-220); POTASSIUM 3.8 mmol/L (3.5-5.1); SODIUM 141 mmol/L (135-144)
[2017-01-09] MEDS ORDERED: morphine 4 MG/ML VIAL IV STA (23:16)
[2017-01-09] MEDS ORDERED: ONDANSETRON 4 MG INJ IV STA (23:21)
[2017-01-09 23:28] LABS: TROPONIN-I < 0.012 ng/ml (0.00-0.12)
--- NOTE | 2017-01-09 23:43 | RADRPT ---
PROCEDURE: XR Chest. CLINICAL INDICATION: Chest pain TECHNIQUE: Single frontal view of the chest. COMPARISON: 10/27/2016. FINDINGS: The cardiomediastinal silhouette is within normal limits. The lungs are clear. No signs of pleural f luid or pneumothorax are seen. The osseous structures and soft tissues are unremarkable. IMPRESSION: No evidence for active cardiopulmonary disease. RPTAT: [facility] Physician Marilu Date Time Electronically viewed and signed by Evans Herrera Physician on 01/09/2017 23:42 RS/
--- NOTE | 2017-01-10 00:32 | ERD ---
ER Documentation Chief Complaint Date/Time DATE: 01/10/17 TIME: 00:30 Chief Complaint chest pain x 2 weeks HPI This is a 61-year-old female here with complaints of chest pain off the past 2 weeks. Patient requesting more for pain. Multiple previous visits for various pain complaints. Also requesting breast ultrasound because she wants to "rule out cancer " ROS All systems reviewed and are negative except as per history of present illness. Medications Home Meds Reported Medications Venlafaxine Hcl* (Venlafaxine Hcl ER*) 75 Mg Cap.er.24h, 75 MG PO DAILY, CAP 01/09/17 Hydrocortisone (Proctocream-Hc) 30 Gm Cream.gm., 30 GM RC DIRECTED Y for HEMORRHOID/EPISIOTMY PAIN 12/23/16 Buspirone Hcl* (Buspar*) 5 Mg Tab, 5 MG PO BID, TAB 12/23/16 Folic Acid* (Folic Acid*) 1 Mg Tablet, 1 MG PO DAILY, TAB 01/10/16 Mometasone-Formoterol (Dulera) 200-5 Mcg/Inh - 13 Gm Hfa.aer.ad, 2 PUFFS INHALATION BID, #1 INHALER 04/13/15 Cholecalciferol* (Vitamin D3*) 2,000 Unit Cap, 2000 UNIT PO DAILY 04/13/15 Atorvastatin* (Atorvastatin*) 40 Mg Tablet, 40 MG PO HS, TAB 10/24/14 Aspirin* (Aspirin* EC) 81 Mg Tablet.dr, 81 MG PO DAILY, TAB 10/24/14 Gabapentin* (Gabapentin*) 300 Mg Capsule, 300 MG PO BID 09/06/12 Omeprazole* (Prilosec*) 40 Mg Capsule.dr, 40 MG PO DAILY 05/18/12 Benazepril Hcl* (Benazepril Hcl*) 10 Mg Tablet, 10 MG PO DAILY 05/10/12 Metoprolol Tartrate (LOPRESSOR) 50 Mg Tab, 50 MG PO DAILY 05/09/12 Allergies Allergies: Coded Allergies: metoclopramide (Unverified Allergy, Mild, 01/09/17) PMhx/Soc History of Surgery: Yes (left parotid mass biopsy 2008) Anesthesia Reaction: No Hx Neurological Disorder: No Hx Respiratory Disorders: No Hx Cardiac Disorders: No Hx Psychiatric Problems: Yes (depression ) Hx Miscellaneous Medical Probl: No Hx Alcohol Use: No Hx Substance Use: No Hx Tobacco Use: No Smoking Status: Never smoker Physical Exam Vitals Vital Signs Date Time Temp Pulse Resp B/P Pulse Ox O2 Delivery O2 Flow Rate FiO2 01/09/17 23:45 66 16 134/66 100 Room Air 01/09/17 21:45 76 16 176/93 100 Room Air 01/09/17 19:53 98.2 68 20 159/68 98 Physical Exam Const: [] Head: Atraumatic Eyes: Normal Conjunctiva ENT: Normal External Ears, Nose and Mouth. Neck: Full range of motion..~ No meningismus. Resp: Clear to auscultation bilaterally Cardio: Regular rate and rhythm, no murmurs Abd: Soft, non tender, non distended. Normal bowel sounds Skin: No petechiae or rashes Back: No midline or flank tenderness Ext: No cyanosis, or edema Neur: Awake and alert Psych: Normal Mood and Affect Result Diagram: 01/09/17221401/09/172214 Results 24 hrs Laboratory Tests Test 01/09/17 22:15 White Blood Count 6.010^3/ul Red Blood Count 4.4410^6/ul Hemoglobin 13.6g/dl Hematocrit 39.4% Mean Corpuscular Volume 88.7fl Mean Corpuscular Hemoglobin 30.6pg Mean Corpuscular Hemoglobin Concent 34.5g/dl Red Cell Distribution Width 12.5% Platelet Count 52539^3/UL Mean Platelet Volume 10.7fl Neutrophils % 53.5% Lymphocytes % 32.4% Monocytes % 11.5% Eosinophils % 1.7% Basophils % 0.7% Nucleated Red Blood Cells % 0.0/100WBC Neutrophils # (Manual) 3.210^3/ul Lymphocytes # 2.010^3/ul Monocytes # 0.710^3/ul Eosinophils # 0.110^3/ul Basophils # 0.010^3/ul Nucleated Red Blood Cells # 0.010^3/ul Sodium Level 141mmol/L Potassium Level 3.8mmol/L Chloride Level 104mmol/L Carbon Dioxide Level 24mmol/L Anion Gap 17 Blood Urea Nitrogen 19mg/dl Creatinine 0.74mg/dl Glucose Level 93mg/dl Calcium Level 10.1mg/dl Troponin I < 0.012ng/ml Current Medications Medications (Trade) Dose Ordered Sig/Chiara Route PRN Reason Start Time Stop Time Status Last Admin Dose Admin Morphine Sulfate (morphine) 4 mg ONCE STAT IV 01/09/17 23:16 01/09/17 23:17 DC 01/09/17 23:26 Ondansetron HCl (Zofran Inj) 4 mg ONCE STAT IV 01/09/17 23:21 01/09/17 23:22 DC 01/09/17 23:27 Procedures/MDM EKG: Rate/Rhythm: [Normal Sinus Rhythm] QRS, ST, T-waves: [No changes consistent w/ acute ischemia] Impression: [No evidence of ischemia or arrhythmia] Chest X-ray 1V Interpreted by me: Soft Tissue: No acute abnormalities Bones: No acute abnormalities Mediastinum/Cardiac Silhouette/Lungs: [No acute abnormalities] Patient's thoracic symptoms have stabilized while in the department and are stable for outpatient follow up. Exam and work up not consistent w/ ischemia, arrhythmia, PE or dissection. Departure Diagnosis: Primary Impression: Chest pain Chest pain type: intercostal pain Qualified Code: R07.82 - Intercostal pain Condition: Stable Patient Instructions: Chest Pain, Uncertain Cause CHARLEE MARY Jan 10, 2017 00:32
[2017-01-10 01:20] VITALS: BP 164/81; PULSE 80; RESP 20
--- NOTE | 2017-01-10 08:28 | RADRPT ---
PROCEDURE: BREAST ULTRASOUND CLINICAL INDICATION: 61 year-old female with left breast pain. TECHNIQUE: Multiple images from different quadrants of the left breast are provided. COMPARISON: None. FINDINGS: The subareolar region is not imaged. The ultrasound of the remaining left breast is unremarkable. N o cystic or solid mass is identified. IMPRESSION: No images of the left subareolar region submitted. Otherwise an unremarkable ultrasound of the left breast pain BIRADS 1 (NEGATIVE) RPTAT: [facility] .Italo Black MD, Date Time Electronically viewed and signed by .Italo Black MD, on 01/10/2017 08:28 .Z/
== END 2017-01-10 01:20 | disposition home or self-care (01) ==
LOC: E/R 19:47
DX: R07.82 Intercostal pain (principal); R40.2142 Coma scale, eyes open, spontaneous, at arrival to emergency department; R40.2252 Coma scale, best verbal response, oriented, at arrival to emergency department; R40.2362 Coma scale, best motor response, obeys commands, at arrival to emergency department; Z79.82 Long term (current) use of aspirin
CPT/HCPCS: 36415; 71010; 76641; 80048; 84484; 85025; 93005; 96374; 96375; J2270; J2405; Z7502

== ENCOUNTER 2017-03-07 22:33 | Emergency (ER) | payer BC ==
[~2017-03-07] VITALS: Ht 157.5 cm; Wt 68.0 kg
[~2017-03-07 22:33] MED LIST changes: +VENL75CA89 PO
[2017-03-07 22:36] VITALS: Ht 157.5 cm; Wt 68.0 kg
--- NOTE | 2017-03-07 23:07 | ERD ---
ER Documentation Chief Complaint Chief Complaint CP HPI The patient is a 61-year-old female, presenting to the ER because of chronic substernal chest pain for more than 2 months. She was admitted recently on December 23, 2016, she had an echocardiogram and a negative Lexiscan myocardial perfusion scan. She had similar symptoms where she had anxiety or panic attack. She wants to have a chest x-ray. She denies fever, chest pain with exertion/vomiting/diaphoresis, dyspnea, abdominal pain, vomiting, dysuria, diarrhea. She does not smoke nor drink Past medical history: Depression, anxiety, panic disorder, dyslipidemia, hypertension Past surgical history: Left parotid gland mass resection ROS All systems reviewed and are negative except as per history of present illness. Medications Home Meds Active Scripts Pantoprazole* (Protonix*) 40 Mg Tablet.dr, 40 MG PO DAILY, #20 TAB Prov:MARY JANE PIZARRO MD 03/08/17 Reported Medications Venlafaxine Hcl* (Venlafaxine Hcl ER*) 75 Mg Cap.er.24h, 75 MG PO DAILY, CAP 01/09/17 Hydrocortisone (Proctocream-Hc) 30 Gm Cream.gm., 30 GM RC DIRECTED Y for HEMORRHOID/EPISIOTMY PAIN 12/23/16 Buspirone Hcl* (Buspar*) 5 Mg Tab, 5 MG PO BID, TAB 12/23/16 Folic Acid* (Folic Acid*) 1 Mg Tablet, 1 MG PO DAILY, TAB 01/10/16 Mometasone-Formoterol (Dulera) 200-5 Mcg/Inh - 13 Gm Hfa.aer.ad, 2 PUFFS INHALATION BID, #1 INHALER 04/13/15 Cholecalciferol* (Vitamin D3*) 2,000 Unit Cap, 2000 UNIT PO DAILY 04/13/15 Atorvastatin* (Atorvastatin*) 40 Mg Tablet, 40 MG PO HS, TAB 10/24/14 Aspirin* (Aspirin* EC) 81 Mg Tablet.dr, 81 MG PO DAILY, TAB 10/24/14 Gabapentin* (Gabapentin*) 300 Mg Capsule, 300 MG PO BID 09/06/12 Omeprazole* (Prilosec*) 40 Mg Capsule.dr, 40 MG PO DAILY 05/18/12 Benazepril Hcl* (Benazepril Hcl*) 10 Mg Tablet, 10 MG PO DAILY 05/10/12 Metoprolol Tartrate (LOPRESSOR) 50 Mg Tab, 50 MG PO DAILY 05/09/12 Allergies Allergies: Coded Allergies: metoclopramide (Unverified Allergy, Mild, 01/09/17) PMhx/Soc History of Surgery: Yes (left parotid mass biopsy 2009) Anesthesia Reaction: No Hx Neurological Disorder: No Hx Respiratory Disorders: No Hx Cardiac Disorders: No Hx Psychiatric Problems: Yes (depression ) Hx Miscellaneous Medical Probl: No Hx Alcohol Use: No Hx Substance Use: No Hx Tobacco Use: No Physical Exam Vitals Vital Signs Date Time Temp Pulse Resp B/P Pulse Ox O2 Delivery O2 Flow Rate FiO2 03/07/17 22:36 97.6 70 20 158/79 100 Physical Exam Const: No acute distress. Head: Atraumatic. Eyes: Normal Conjunctiva. ENT: Normal External Ears, Nose and Mouth. Neck: Full range of motion. No meningismus. Resp: Clear to auscultation bilaterally. Cardio: Regular rate and rhythm. Abd: Soft, non distended, normal bowel sounds, non tender. Skin: No petechiae or rashes. Back: No midline or flank tenderness. Ext: No cyanosis, or edema. Neur: Awake and alert. No focal deficit Psych: Normal Mood and Affect. Result Diagram: 03/07/17231903/07/172319 Results 24 hrs Laboratory Tests Test 03/07/17 23:20 White Blood Count 5.910^3/ul Red Blood Count 4.3310^6/ul Hemoglobin 13.3g/dl Hematocrit 38.3% Mean Corpuscular Volume 88.5fl Mean Corpuscular Hemoglobin 30.7pg Mean Corpuscular Hemoglobin Concent 34.7g/dl Red Cell Distribution Width 12.4% Platelet Count 74349^3/UL Mean Platelet Volume 10.0fl Neutrophils % 52.7% Lymphocytes % 35.8% Monocytes % 9.1% Eosinophils % 1.5% Basophils % 0.7% Nucleated Red Blood Cells % 0.0/100WBC Neutrophils # 3.110^3/ul Lymphocytes # 2.110^3/ul Monocytes # 0.510^3/ul Eosinophils # 0.110^3/ul Basophils # 0.010^3/ul Nucleated Red Blood Cells # 0.010^3/ul Sodium Level 145mmol/L Potassium Level 3.8mmol/L Chloride Level 107mmol/L Carbon Dioxide Level 27mmol/L Anion Gap 15 Blood Urea Nitrogen 12mg/dl Creatinine 0.73mg/dl Glucose Level 106mg/dl Calcium Level 9.9mg/dl Troponin I < 0.012ng/ml Current Medications Medications (Trade) Dose Ordered Sig/Chiara Route PRN Reason Start Time Stop Time Status Last Admin Dose Admin Alprazolam (Xanax) 0.25 mg ONCE ONCE PO 03/07/17 23:30 03/07/17 23:31 DC 03/07/17 23:50 Procedures/MDM EKG: Read by emergency physician Rate/Rhythm: Normal Sinus Rhythm 69 beats/min QRS, ST, T-waves: No ST elevation, left posterior fascicular block, nonspecific T abnormality Impression: Abnormal EKG [place] [id number] Radiology Main Line: [phone] DIAGNOSTIC IMAGING REPORT Patient: JARROD TOMLIN : 1955 Age: 61 Sex: F MR #: [id number] DOS: 03/07/17 2324 Ordering MD: MARY JANE PIZARRO MD Location: E/R Room/Bed: PROCEDURE: XR Chest. CLINICAL INDICATION: Chest pain. TECHNIQUE: Portable AP semi erect view of the chest was obtained. COMPARISON: 01/09/2017 FINDINGS: The cardiomediastinal silhouette is within normal limits. The lungs are clear. There is no evidence for pleural effusion, pneumothorax or pulmonary vascular congestion. The osseous structures are intact with no evidence for acute abnormality. RPTAT:HJJR IMPRESSION: No evidence for acute intrathoracic pathology or change from 01/09/2017. Physician Art Date Time Electronically viewed and signed by Physician Art on 03/08/2017 00:27 JR/ CC: MARY JANE PIZARRO MD MEDICAL MAKING DECISION: The patient is a 71-year-old female, presenting with acute anxiety, chronic chest pain of unclear etiology. She was treated with Xanax 0.25 mg p.o. for acute anxiety with good response. The differential diagnoses considered include but are not limited to acute coronary syndrome, acute myocardial infarction, pericarditis, pulmonary embolism , aortic dissection, pneumonia, pleural effusion, pneumothorax, GERD, chest wall pain. Departure Diagnosis: Primary Impression: Chest pain Additional Impression: Anxiety Condition: Good Comments I discussed the findings with the patient. I advised the patient to follow-up with the primary physician in about 1-2 days evaluation and referral to gastroenterology for endoscopy, sooner if needed and return if any concern. Disclaimer: Inadvertent spelling and grammatical errors are likely due to EHR/ dictation software use and do not reflect on the overall quality of patient care. Also, please note that the electronic time recorded on this note does not necessarily reflect the actual time of the patient encounter. MARY JANE PIZARRO MD Mar 07, 2017 23:07
[2017-03-07] MEDS ORDERED: ALPRAZOLAM 0.25 MG TAB PO ONE (23:30)
--- NOTE | 2017-03-08 00:27 | RADRPT ---
PROCEDURE: XR Chest. CLINICAL INDICATION: Chest pain. TECHNIQUE: Portable AP semi erect view of the chest was obtained. COMPARISON: 01/09/2017 FINDINGS: The cardiomediastinal silhouette is within normal limits. The lungs are clear. There is no evidenc e for pleural effusion, pneumothorax or pulmonary vascular congestion. The osseous structures are i ntact with no evidence for acute abnormality. RPTAT:HJJR IMPRESSION: No evidence for acute intrathoracic pathology or change from 01/09/2017. Physician Art Date Time Electronically viewed and signed by Physician Art on 03/08/2017 00:27 /
[2017-03-08] MEDS ORDERED: PANT40TA3 PO (01:04)
[2017-03-08 01:21] VITALS: BP 112/68; PULSE 72; RESP 20; TEMP 97.6
== END 2017-03-08 01:22 | disposition home or self-care (01) ==
LOC: E/R 22:33
DX: F41.9 Anxiety disorder, unspecified (principal); I10 Essential (primary) hypertension; Z79.82 Long term (current) use of aspirin
CPT/HCPCS: 36415; 71010; 80048; 84484; 85025; 93005; Z7502; Z7610

== ENCOUNTER 2017-05-21 21:03 | Emergency (ER) | END 2017-05-22 00:35 | disposition home or self-care (01) ==

== ENCOUNTER 2017-05-27 21:04 | Emergency (ER) | END 2017-05-28 03:31 | disposition home or self-care (01) ==

== ENCOUNTER 2017-08-09 19:32 | Emergency (ER) | END 2017-08-10 01:16 | disposition home or self-care (01) ==

== ENCOUNTER 2017-08-21 07:11 | Day surgery (SDC) | END 2017-08-21 12:56 | disposition home or self-care (01) ==

== ENCOUNTER 2017-12-25 21:54 | Emergency (ER) | END 2017-12-26 02:48 | disposition home or self-care (01) ==

== ENCOUNTER 2017-12-29 15:09 | Emergency (ER) | END 2017-12-29 16:36 | disposition home or self-care (01) ==

== ENCOUNTER 2018-06-09 22:55 | Emergency (ER) | payer BC ==
[~2018-06-09] VITALS: Wt 71.3 kg
[~2018-06-09 22:55] MED LIST changes: +ALEN70TA5 PO; -ASPI-664 PO; +ASPI-817 PO; +AZIT250T PO; +BENA10TA4 PO; -BENA10TA48 PO; +CARI350T29 PO; -CHOL2000 PO; +FIORICET PO; +HYDR-3980 PO; +HYDR28.334 TP; -HYDR30CR RC; +HYDR30CR92 RC; +OMEP20CA16 PO; -OMEP40CA3 PO; +TEMA15CA6 PO; +TRAM50TA2 PO
[2018-06-09] MEDS ORDERED: morphine 4 MG/ML VIAL IV STA (23:34)
[2018-06-09] MEDS ORDERED: ONDANSETRON 4 MG INJ IV STA (23:34)
[2018-06-09] MEDS ORDERED: SOD CHLORIDE 0.9% 500 ML IV STA (23:34)
[2018-06-10] MEDS ORDERED: CARI350T PO (02:26)
[2018-06-10] MEDS ORDERED: [UNRECOGNIZED DRUG - CODE] IJ (02:26)
[2018-06-10 02:58] VITALS: BP 114/82; PULSE 71; RESP 18
--- NOTE | 2018-07-01 00:20 | ERD ---
ER Documentation Chief Complaint Chief Complaint bib self, cc: left flank pain radiating to left abd. pain x 10 days HPI This is a 62-year-old female brought in by self complains of left flank pain rating to left abdomen for 10 days. Pain is mild to moderate intensity no exacerbating relieving factors. Mild nausea but no vomiting. No fevers or chills. No trauma. ROS All systems reviewed and are negative except as per history of present illness. Medications Home Meds Active Scripts Vitamins B1,B2,B3,B5,& B6 (B-Complex 100 Injection) 30 Ml Vial, 30 ML IJ EARNEST, #1 VIAL Prov:CHARLEE MARY S. 06/10/18 Carisoprodol* (Soma*) 350 Mg Tablet, 350 MG PO TID PRN for MUSCLE SPASMS, #15 TAB Prov:CHARLEE MARY Nilda. 06/10/18 Tramadol HCl (Tramadol HCl) 50 Mg Tablet, 50 MG PO Q6, #20 TAB Prov:JUANCHO OSORIO. DO 12/29/17 Azithromycin* (Zithromax*) 250 Mg Tablet, 250 MG PO DAILY for 4 Days, TAB Prov:JUANCHO OSORIO. DO 12/29/17 Hydrocodone/Acetaminophen ([place] 10-325 Tablet) 1 Each Tablet, 1 TAB PO Q6H PRN for PAIN, #20 TAB Prov:CHARLEE MARY S. 12/26/17 Reported Medications Temazepam* (Restoril*) 15 Mg Capsule, 15 MG PO HS PRN for INSOMNIA, CAP 12/29/17 Buspirone Hcl* (Buspar*) 5 Mg Tab, 5 MG PO BID, TAB 12/29/17 Venlafaxine Hcl* (Venlafaxine Hcl ER*) 75 Mg Cap.er.24h, 75 MG PO DAILY, CAP 12/29/17 Carisoprodol* (Carisoprodol*) 350 Mg Tablet, 350 MG PO NEEDED PRN for MUSCLE SPASMS, TAB 12/29/17 Hydrocortisone (Proctocream-Hc) 30 Gm Cream.gm., GM RC 12/26/17 Hydrocortisone (Hydrocortisone Cr) 28.35 Gm Cr, 28.35 GM TP 12/26/17 Alendronate Sodium* (Fosamax*) 70 Mg Tablet, 70 MG PO Q7D, #4 TAB TAKE 1 TAB BY MOUTH ONCE A WEEK :QTHURSDAY 12/26/17 Acetamin/Butalbital/Caffeine* (Fioricet*) [id number] Tab, 1 TAB PO Q4H PRN for PAIN LEVEL 1-5, TAB 12/26/17 Mometasone-Formoterol (Dulera) 200-5 Mcg/Inh - 13 Gm Hfa.aer.ad, 2 PUFFS INHALATION BID, #1 INHALER 12/26/17 Atorvastatin* (Atorvastatin*) 40 Mg Tablet, 40 MG PO QHS, #30 TAB 08/09/17 Gabapentin* (Gabapentin*) 300 Mg Capsule, 300 MG PO BID, #60 CAP 08/09/17 Aspirin* (Aspirin* EC) 81 Mg Tablet.dr, 81 MG PO DAILY, TAB 08/09/17 Benazepril Hcl* (Benazepril Hcl*) 10 Mg Tablet, 10 MG PO DAILY, #30 TAB 08/09/17 Metoprolol Tartrate* (Lopressor*) 50 Mg Tab, 50 MG PO DAILY, #60 TAB 08/09/17 Folic Acid* (Folic Acid*) 1 Mg Tablet, 1 MG PO DAILY, TAB 08/09/17 Omeprazole* (Omeprazole*) 20 Mg Capsule.dr, 40 MG PO DAILY, #30 CAP 08/09/17 Allergies Allergies: Coded Allergies: metoclopramide (Unverified Allergy, Mild, 12/29/17) PMhx/Soc History of Surgery: Yes (APPENDECTOMY, TONSILLECTOMY, LYROTIC MASS SX) Anesthesia Reaction: No Hx Neurological Disorder: No Hx Respiratory Disorders: Yes (BRONCHITIS) Hx Cardiac Disorders: Yes (HYPERTENSION) Hx Psychiatric Problems: No Hx Miscellaneous Medical Probl: Yes (HYPERLIPIDEMIA) Hx Alcohol Use: No Hx Substance Use: No Hx Tobacco Use: No Smoking Status: Never smoker Physical Exam Physical Exam Const: No acute distress Head: Atraumatic Eyes: Normal Conjunctiva ENT: Normal External Ears, Nose and Mouth. Neck: Full range of motion. No meningismus. Resp: Clear to auscultation bilaterally Cardio: Regular rate and rhythm, no murmurs Abd: Soft, non tender, non distended. Normal bowel sounds Skin: No petechiae or rashes Back: No midline or flank tenderness Ext: No cyanosis, or edema Neur: Awake and alert Psych: Normal Mood and Affect Results 24 hrs Laboratory Tests Test 06/10/18 00:29 White Blood Count 5.2 10^3/ul Red Blood Count 4.47 10^6/ul Hemoglobin 13.6 g/dl Hematocrit 39.2 % Mean Corpuscular Volume 87.7 fl Mean Corpuscular Hemoglobin 30.4 pg Mean Corpuscular Hemoglobin Concent 34.7 g/dl Red Cell Distribution Width 12.3 % Platelet Count 227 10^3/UL Mean Platelet Volume 9.6 fl Immature Granulocytes % 0.200 % Neutrophils % 47.8 % Lymphocytes % 39.7 % Monocytes % 9.6 % Eosinophils % 1.9 % Basophils % 0.8 % Nucleated Red Blood Cells % 0.0 /100WBC Immature Granulocytes # 0.010 10^3/ul Neutrophils # 2.5 10^3/ul Lymphocytes # 2.1 10^3/ul Monocytes # 0.5 10^3/ul Eosinophils # 0.1 10^3/ul Basophils # 0.0 10^3/ul Nucleated Red Blood Cells # 0.0 10^3/ul Urine Color STRAW Urine Clarity CLEAR Urine pH 6.0 Urine Specific [place] 1.008 Urine Ketones NEGATIVE mg/dL Urine Nitrite NEGATIVE mg/dL Urine Bilirubin NEGATIVE mg/dL Urine Urobilinogen NEGATIVE mg/dL Urine Leukocyte Esterase NEGATIVE Eladio/ul Urine Microscopic RBC 3 /HPF Urine Microscopic WBC 0 /HPF Urine Hemoglobin 1+ mg/dL Urine Glucose NEGATIVE mg/dL Urine Total Protein 1+ mg/dl Sodium Level 139 mmol/L Potassium Level 4.0 mmol/L Chloride Level 106 mmol/L Carbon Dioxide Level 27 mmol/L Anion Gap 6 Blood Urea Nitrogen 11 mg/dl Creatinine 0.65 mg/dl Est Glomerular Filtrat Rate mL/min > 60 mL/min Glucose Level 99 mg/dl Calcium Level 10.0 mg/dl Total Bilirubin 0.1 mg/dl Direct Bilirubin 0.00 mg/dl Indirect Bilirubin 0.1 mg/dl Aspartate Amino Transf (AST/SGOT) 25 IU/L Alanine Aminotransferase (ALT/SGPT) 29 IU/L Alkaline Phosphatase 112 IU/L Troponin I < 0.012 ng/ml Total Protein 8.5 g/dl Albumin 4.7 g/dl Globulin 3.80 g/dl Albumin/Globulin Ratio 1.23 Lipase 215 U/L Current Medications Medications Dose Sig/Chiara Start Time Status Last (Trade) Ordered Route PRN Stop Time Admin Dose Reason Admin Sodium 500 ml @ Q1H STAT 06/09/18 DC 06/10/18 Chloride 500 mls/hr IV 23:34 00:27 06/10/18 00:33 Morphine 4 mg ONCE STAT 06/09/18 DC 06/10/18 Sulfate IV 23:34 00:29 (morphine) 06/09/18 23:36 Ondansetron 4 mg ONCE STAT 06/09/18 DC 06/10/18 HCl (Zofran IV 23:34 00:28 Inj) 06/09/18 23:36 Procedures/MDM EKG: Rate/Rhythm: [Normal Sinus Rhythm] QRS, ST, T-waves: [No changes consistent w/ acute ischemia] Impression: [No evidence of ischemia or arrhythmia] Chest X-ray 1V Interpreted by me: Soft Tissue: No acute abnormalities Bones: No acute abnormalities Mediastinum/Cardiac Silhouette/Lungs: [No acute abnormalities] Medical decision making: Patient's gastrointestinal symptoms have stabilized while in the department. No evidence of severe dehydration, sepsis, or surgical abdomen. Extensive discussion with family and patient that occult disease cannot be ruled out. 8 hour recheck for repeat abdominal exam is planned. Departure Diagnosis: Primary Impression: Chronic neck and back pain Additional Impressions: Multiple complaints Flank pain Condition: Stable Patient Instructions: Back And Neck Pain, General Referrals: [facility] MORENO (PCP) CHARLEE MARY Jul 01, 2018 00:20
== END 2018-06-10 03:05 | disposition home or self-care (01) ==
LOC: E/R 22:55
DX: M54.2 Cervicalgia (principal); M54.9 Dorsalgia, unspecified; R11.0 Nausea; I10 Essential (primary) hypertension; Z79.82 Long term (current) use of aspirin
CPT/HCPCS: 71045; 74176; 80053; 81001; 83690; 84484; 85025; 93005; J2270; J2405; J7040; 36415; 96361; 96374; 96375

== ENCOUNTER 2018-09-16 16:17 | Emergency (ER) | payer BC ==
[~2018-09-16] VITALS: Ht 157.5 cm; Wt 69.4 kg
[~2018-09-16 16:17] MED LIST changes: +CARI350T PO; +[UNRECOGNIZED DRUG - CODE] IJ
[2018-09-16 16:24] VITALS: Ht 157.5 cm; Wt 69.4 kg
--- NOTE | 2018-09-16 16:45 | ERD ---
ER Documentation Chief Complaint Chief Complaint vomiting/diarrhea since last night with abd pain and fever HPI The patient is a 62-year-old female, presenting to the ER because of vomiting and diarrhea after she had a tuna sandwich at [employer] around 3 PM, complains of fever today. She denies cough, neck pain, chest pain, dyspnea, dysuria. She does not smoke, drink Medical history: Anxiety, depression, osteoporosis, dyslipidemia, hypertension Past surgical history: Appendectomy, tonsillectomy ROS All systems reviewed and are negative except as per history of present illness. Medications Home Meds Active Scripts Ciprofloxacin Hcl* (Ciprofloxacin Hcl*) 500 Mg Tablet, 500 MG PO BID for 3 Days, TAB Prov:MARY JANE PIZARRO MD 09/16/18 Loperamide Hcl* (Imodium*) 2 Mg Capsule, 2 MG PO .AFTER EA LOOSE BM PRN for DIARRHEA, #10 TAB Prov:MARY JANE PIZARRO MD 09/16/18 Ondansetron (Ondansetron Odt) 4 Mg Tab.rapdis, 4 MG PO Q6H PRN for NAUSEA AND/OR VOMITING, #10 TAB Prov:MARY JANE PIZARRO MD 09/16/18 Reported Medications Alprazolam* (Xanax*) 0.25 Mg Tablet, 0.25 MG PO NEEDED PRN for ANXIETY, TAB 09/16/18 Mometasone-Formoterol (Dulera) 200-5 Mcg/Inh - 13 Gm Hfa.aer.ad, 2 PUFFS INHALATION BID, #1 INHALER 09/16/18 Jrssoectcw-Wzpqxfemkhhqi-Qlqkyfjo* (Zebutal*) 50-325-40 Mg Capsule, 1 CAP PO Q4H PRN for PAIN LEVEL 1-5/10, CAP 09/16/18 Venlafaxine Hcl* (Venlafaxine Hcl ER*) 75 Mg Cap.er.24h, 75 MG PO DAILY, CAP 09/16/18 Buspirone Hcl* (Buspirone Hcl*) 5 Mg Tab, 5 MG PO BID, TAB 09/16/18 Temazepam* (Restoril*) 15 Mg Capsule, 15 MG PO HS PRN for INSOMNIA, CAP 09/16/18 Alendronate Sodium* (Fosamax*) 70 Mg Tablet, 70 MG PO Q THUR, #4 TAB 09/16/18 Hydrocortisone (Proctocream-Hc) 30 Gm Cream.gm., 30 GM RC DAILY 09/16/18 Atorvastatin* (Atorvastatin*) 40 Mg Tablet, 40 MG PO QHS, #30 TAB 09/16/18 Gabapentin* (Gabapentin*) 300 Mg Capsule, 300 MG PO BID, #60 CAP 09/16/18 Aspirin* (Aspirin* EC) 81 Mg Tablet.dr, 81 MG PO DAILY, TAB 09/16/18 Benazepril Hcl* (Benazepril Hcl*) 10 Mg Tablet, 10 MG PO DAILY, #30 TAB 09/16/18 Metoprolol Tartrate* (Lopressor*) 50 Mg Tab, 50 MG PO DAILY, #60 TAB 09/16/18 Folic Acid* (Folic Acid*) 1 Mg Tablet, 1 MG PO DAILY, TAB 09/16/18 Discontinued Reported Medications Temazepam* (Restoril*) 15 Mg Capsule, 15 MG PO HS PRN for INSOMNIA, CAP 12/29/17 Buspirone Hcl* (Buspar*) 5 Mg Tab, 5 MG PO BID, TAB 12/29/17 Venlafaxine Hcl* (Venlafaxine Hcl ER*) 75 Mg Cap.er.24h, 75 MG PO DAILY, CAP 12/29/17 Carisoprodol* (Carisoprodol*) 350 Mg Tablet, 350 MG PO NEEDED PRN for MUSCLE SPASMS, TAB 12/29/17 Hydrocortisone (Proctocream-Hc) 30 Gm Cream.gm., GM RC 12/26/17 Hydrocortisone (Hydrocortisone Cr) 28.35 Gm Cr, 28.35 GM TP 12/26/17 Alendronate Sodium* (Fosamax*) 70 Mg Tablet, 70 MG PO Q7D, #4 TAB TAKE 1 TAB BY MOUTH ONCE A WEEK :QTHURSDAY 12/26/17 Acetamin/Butalbital/Caffeine* (Fioricet*) [id number] Tab, 1 TAB PO Q4H PRN for PAIN LEVEL 1-5, TAB 12/26/17 Mometasone-Formoterol (Dulera) 200-5 Mcg/Inh - 13 Gm Hfa.aer.ad, 2 PUFFS INHALATION BID, #1 INHALER 12/26/17 Atorvastatin* (Atorvastatin*) 40 Mg Tablet, 40 MG PO QHS, #30 TAB 08/09/17 Gabapentin* (Gabapentin*) 300 Mg Capsule, 300 MG PO BID, #60 CAP 08/09/17 Aspirin* (Aspirin* EC) 81 Mg Tablet.dr, 81 MG PO DAILY, TAB 08/09/17 Benazepril Hcl* (Benazepril Hcl*) 10 Mg Tablet, 10 MG PO DAILY, #30 TAB 08/09/17 Metoprolol Tartrate* (Lopressor*) 50 Mg Tab, 50 MG PO DAILY, #60 TAB 08/09/17 Folic Acid* (Folic Acid*) 1 Mg Tablet, 1 MG PO DAILY, TAB 08/09/17 Omeprazole* (Omeprazole*) 20 Mg Capsule.dr, 40 MG PO DAILY, #30 CAP 08/09/17 Discontinued Scripts Vitamins B1,B2,B3,B5,& B6 (B-Complex 100 Injection) 30 Ml Vial, 30 ML IJ EARNEST, #1 VIAL Prov:CHARLEE MARY 06/10/18 Carisoprodol* (Soma*) 350 Mg Tablet, 350 MG PO TID PRN for MUSCLE SPASMS, #15 TAB Prov:CHARLEE MARY S. 06/10/18 Tramadol HCl (Tramadol HCl) 50 Mg Tablet, 50 MG PO Q6, #20 TAB Prov:JUANCHO OSORIO DO 12/29/17 Azithromycin* (Zithromax*) 250 Mg Tablet, 250 MG PO DAILY for 4 Days, TAB Prov:FAUSTINO OSORIOSTSIVA White. DO 12/29/17 Hydrocodone/Acetaminophen ([place] 10-325 Tablet) 1 Each Tablet, 1 TAB PO Q6H PRN for PAIN, #20 TAB Prov:CHARLEE MARY. 12/26/17 Allergies Allergies: Coded Allergies: metoclopramide (Unverified Allergy, Mild, 09/16/18) PMhx/Soc History of Surgery: Yes (APPENDECTOMY, TONSILLECTOMY, LYROTIC MASS SX) Anesthesia Reaction: No Hx Neurological Disorder: No Hx Respiratory Disorders: Yes (BRONCHITIS) Hx Cardiac Disorders: Yes (HYPERTENSION) Hx Psychiatric Problems: No Hx Miscellaneous Medical Probl: Yes (HYPERLIPIDEMIA) Hx Alcohol Use: No Hx Substance Use: No Hx Tobacco Use: No Smoking Status: Never smoker Physical Exam Vitals Vital Signs Date Temp Pulse Resp B/P (MAP) Pulse Ox O2 O2 Flow FiO2 Time Delivery Rate 09/16/18 78 15 98/53 (68) 98 Room Air 18:00 09/16/18 101.1 84 18 124/61 98 16:24 (82) Physical Exam Const: No acute distress. Head: Atraumatic. Eyes: Normal Conjunctiva. ENT: Normal External Ears, Nose and Mouth. Neck: Full range of motion. No meningismus. Resp: Clear to auscultation bilaterally. Cardio: Regular rate and rhythm. Abd: Soft, non distended, normal bowel sounds, epigastric discomfort, no rigidity/rebound/CVA tenderness. Skin: No petechiae or rashes. Back: No midline or flank tenderness. Ext: No cyanosis, or edema. Neur: Awake and alert. No focal deficit Psych: Normal Mood and Affect. Result Diagram: 09/16/18 1711 09/16/18 1711 Results 24 hrs Laboratory Tests Test 09/16/18 17:07 09/16/18 17:11 Bedside Urine pH (LAB) 5.5 Bedside Urine Protein (LAB) 2+ Bedside Urine Glucose (UA) Negative Bedside Urine Ketones (LAB) Negative Bedside Urine Blood 2+ Bedside Urine Nitrite (LAB) Negative Bedside Urine Leukocyte Esterase (L Negative White Blood Count 7.2 10^3/ul Red Blood Count 4.51 10^6/ul Hemoglobin 13.5 g/dl Hematocrit 40.3 % Mean Corpuscular Volume 89.4 fl Mean Corpuscular Hemoglobin 29.9 pg Mean Corpuscular Hemoglobin Concent 33.5 g/dl Red Cell Distribution Width 12.9 % Platelet Count 218 10^3/UL Mean Platelet Volume 9.2 fl Immature Granulocytes % 0.300 % Neutrophils % 83.9 % Lymphocytes % 11.1 % Monocytes % 3.5 % Eosinophils % 0.8 % Basophils % 0.4 % Nucleated Red Blood Cells % 0.0 /100WBC Immature Granulocytes # 0.020 10^3/ul Neutrophils # 6.0 10^3/ul Lymphocytes # 0.8 10^3/ul Monocytes # 0.3 10^3/ul Eosinophils # 0.1 10^3/ul Basophils # 0.0 10^3/ul Nucleated Red Blood Cells # 0.0 10^3/ul Sodium Level 139 mmol/L Potassium Level 4.2 mmol/L Chloride Level 102 mmol/L Carbon Dioxide Level 26 mmol/L Anion Gap 11 Blood Urea Nitrogen 20 mg/dl Creatinine 0.71 mg/dl Est Glomerular Filtrat Rate mL/min > 60 mL/min Glucose Level 104 mg/dl Calcium Level 9.2 mg/dl Total Bilirubin 0.5 mg/dl Direct Bilirubin 0.00 mg/dl Indirect Bilirubin 0.5 mg/dl Aspartate Amino Transf (AST/SGOT) 19 IU/L Alanine Aminotransferase (ALT/SGPT) 21 IU/L Alkaline Phosphatase 106 IU/L Total Protein 8.0 g/dl Albumin 4.4 g/dl Globulin 3.60 g/dl Albumin/Globulin Ratio 1.22 Lipase 95 U/L Current Medications Medications Dose Sig/Chiara Start Time Status Last (Trade) Ordered Route PRN Stop Time Admin Dose Reason Admin Sodium 1,000 ml @ Q1H STAT 09/16/18 DC 09/16/18 Chloride 1,000 mls/hr IV 16:53 17:14 09/16/18 17:52 Ondansetron 4 mg ONCE STAT 09/16/18 DC 09/16/18 HCl (Zofran IV 16:53 17:06 Inj) 09/16/18 16:54 Ketorolac 30 mg ONCE STAT 09/16/18 DC 09/16/18 Tromethamine IV 17:18 17:38 (Toradol) 09/16/18 17:20 Morphine 2 mg ONCE STAT 09/16/18 DC Sulfate IV 18:17 (morphine) 09/16/18 18:18 Ondansetron 4 mg ONCE STAT 09/16/18 DC HCl (Zofran IV 18:18 Inj) 09/16/18 18:19 Procedures/[place] [id number] Radiology Main Line: [phone] DIAGNOSTIC IMAGING REPORT Patient: JARROD TOMLIN : 1955 Age: 62 Sex: F [id number] DOS: 09/16/18 1653 Ordering MD: MARY JANE PIZARRO MD Location: E/R Room/Bed: PROCEDURE: XR Chest. CLINICAL INDICATION: Chest pain. TECHNIQUE: Single frontal chest x-ray. COMPARISON: CHEST 06/09/2018; [facility] CHEST 10/27/2016; [facility] CHEST 01/10/2016; CR CHEST 04/13/2015; CR CHEST 11/18/2014 FINDINGS: The lungs are clear. No focal opacification is seen. The cardiomediastinal silhouette is unremarkable. The osseous structures are unremarkable. Appearances are unchanged when compared to the prior study. IMPRESSION: 1. No acute cardiopulmonary process. 2. Stable appearances over time. RPTAT: PP .Suresh Auguste MD, Date Time Electronically viewed and signed by .Suresh Auguste MD, MD on 09/16/2018 17:30 .B/ CC: MARY JANE PIZARRO MD [id number] [place] [id number] Radiology Main Line: [phone] DIAGNOSTIC IMAGING REPORT Patient: JARROD TOMLIN : 1955 Age: 62 Sex: F MR #: [id number] DOS: 09/16/18 1653 Ordering MD: MARY JANE PIZARRO MD Location: E/R Room/Bed: PROCEDURE: US Abdomen. CLINICAL INDICATION: abdominal pain TECHNIQUE: Multiple real-time images were acquired of the patient's right upp er quadrant abdomen and retroperitoneum utilizing a high resolution transducer. COMPARISON: 06/10/2018 FINDINGS: The liver demonstrates normal echogenicity. The liver is normal in size and no focal solid lesions are seen. The liver measures 15.1 cm in length. The portal vein is patent with normal direction of flow. No intrahepatic biliary dilatation is seen. The gallbladder is moderately distended. No gallstones are identified within the gallbladder. There is no pericholecystic fluid or gallbladder wall thickening. The common bile duct measures 3 mm in maximal dimension. The pancreas is not well seen due to overlying bowel gas. No free fluid is identified. The right kidney is normal in size, and demonstrate normal echogenicity and cortical thickness. The right kidney measures 11.6 cm in long dimension. There is mild right-sided hydronephrosis with a prominent right renal pelvis, unchanged.. There are no kidney stones. RPTAT: AA IMPRESSION: Moderately distended gallbladder with no evidence of stones. Mild right-sided hydronephrosis with a prominent right renal pelvis, unchanged. .Tom Ramos MD, MD Date Time Electronically viewed and signed by .Tom Ramos MD, MD on 09/16/2018 17:55 .S/ CC: MARY JANE PIZARRO MD [id number] MEDICAL MAKING DECISION: The patient is a 62-year-old female, presenting with vomiting diarrhea, most likely acute food poisoning. She was treated with 1 L normal saline for clinical dehydration, Zofran 4 mg IV x2 for nausea, Toradol 30 mg IV and morphine 2 mg IV for her pain with good response, is above outpatient follow-up The differential diagnoses considered include but are not limited to infectious diarrhea, colitis, cholelithiasis, cholecystitis, choledocholithiasis, cholangi tis, pancreatitis, hepatitis, gastritis, peptic ulcer disease, gastric ulcer, appendicitis, cystitis, diverticulitis, partial small bowel obstruction. Departure Diagnosis: Primary Impression: Vomiting and diarrhea Condition: Good Comments She was discharge with Cipro for 3 days, Zofran, Imodium I discussed the findings with the patient. I advised the patient to follow-up with the primary physician in about 2-3 days, sooner if needed and return if any concern. Disclaimer: Inadvertent spelling and grammatical errors are likely due to EHR/dictation software use and do not reflect on the overall quality of patient care. Also, please note that the electronic time recorded on this note does not necessarily reflect the actual time of the patient encounter. MARY JANE PIZARRO MD September 16, 2018 16:45
[2018-09-16] MEDS ORDERED: ONDANSETRON 4 MG INJ IV STA ×2 (16:53→18:18)
[2018-09-16] MEDS ORDERED: SOD CHLORIDE 0.9% 1,000 ML IV STA (16:53)
[2018-09-16] MEDS ORDERED: KETOROLAC 30 MG INJ IV STA (17:18)
[2018-09-16] MEDS ORDERED: FOLI-49 PO (17:52)
[2018-09-16] MEDS ORDERED: METO-429 PO (17:52)
[2018-09-16] MEDS ORDERED: GABA300C16 PO (17:53)
[2018-09-16] MEDS ORDERED: BENA10TA4 PO (17:53)
[2018-09-16] MEDS ORDERED: ASPI-817 PO (17:53)
[2018-09-16] MEDS ORDERED: HYDR30CR92 RC (17:54)
[2018-09-16] MEDS ORDERED: ATOR40TA68 PO (17:54)
[2018-09-16] MEDS ORDERED: TEMA15CA6 PO (17:55)
[2018-09-16] MEDS ORDERED: ALEN70TA5 PO (17:55)
[2018-09-16] MEDS ORDERED: VENL75CA89 PO (17:56)
[2018-09-16] MEDS ORDERED: BUSP5TAB2 PO (17:56)
[2018-09-16] MEDS ORDERED: BUTA1CAP41 PO (17:57)
[2018-09-16] MEDS ORDERED: MOME13HF INHALATION (17:58)
[2018-09-16] MEDS ORDERED: ALPR0.25 PO (17:59)
[2018-09-16] MEDS ORDERED: morphine 2 MG INJ IV STA (18:17)
[2018-09-16] MEDS ORDERED: CIPR500T4 PO (18:20)
[2018-09-16] MEDS ORDERED: LOPE2CAP PO (18:20)
[2018-09-16] MEDS ORDERED: ONDA4TAB14 PO (18:20)
[2018-09-16 19:29] VITALS: BP 112/61; PULSE 81; RESP 20
== END 2018-09-16 19:30 | disposition home or self-care (01) ==
LOC: E/R 16:17
DX: R11.10 Vomiting, unspecified (principal); I10 Essential (primary) hypertension; R19.7 Diarrhea, unspecified; Z79.82 Long term (current) use of aspirin
CPT/HCPCS: 36415; 71045; 76705; 80053; 81003; 83690; 85025; 96374; 96375; 96376; J1885; J2270; J2405; J7030; Z7502

== ENCOUNTER 2018-12-31 10:59 | Emergency (ER) | payer BC ==
[~2018-12-31] VITALS: Ht 152.4 cm; Wt 69.8 kg
[~2018-12-31 10:59] MED LIST changes: +ALPR0.25 PO; -AZIT250T PO; +BACL10TA PO; -BUS5 PO; +BUSP5TAB2 PO; +BUTA1CAP41 PO; -CARI350T29 PO; +CEPH-443 PO; +CIPR500T4 PO; -FIORICET PO; +HC30CR25 TOP; -HYDR-3980 PO; +HYDR-843 PO; -HYDR28.334 TP; +LOPE2CAP PO; -OMEP20CA16 PO; +ONDA4TAB14 PO; -TRAM50TA2 PO; -[UNRECOGNIZED DRUG - CODE] IJ
[2018-12-31 11:21] VITALS: BP 124/72; PULSE 79; RESP 20; Ht 152.4 cm; Wt 69.8 kg
== END 2018-12-31 12:39 | disposition home or self-care (01) ==
LOC: E/R 10:59
DX: S80.862A Insect bite (nonvenomous), left lower leg, initial encounter (principal); S80.861A Insect bite (nonvenomous), right lower leg, initial encounter; I10 Essential (primary) hypertension; W57.XXXA Bitten or stung by nonvenomous insect and other nonvenomous arthropods, initial encounter; Y92.9 Unspecified place or not applicable; Z79.82 Long term (current) use of aspirin
CPT/HCPCS: 99283

== ENCOUNTER 2019-01-11 12:11 | Emergency (ER) | payer BC ==
[~2019-01-11] VITALS: Ht 157.5 cm; Wt 71.8 kg
[~2019-01-11 12:11] MED LIST changes: +ALBU8.5H8 INH; +AMOX1TAB10 PO; +AMOX500C2 PO; +AZIT250T PO; +BEN25 PO; -BENA10TA4 PO; +BENA10TA6 PO; +BENZ-6 PO; +BENZ1LOZ52 MM; +FLUT9.9S16 NS; +IBUP-1541 PO; +LACT1CAP57 PO; +LEVO750T25 PO; +LIDO20SO19 MM; +SULF1TAB31 PO
[2019-01-11 12:36] VITALS: Ht 157.5 cm; Wt 71.8 kg
[2019-01-11] MEDS ORDERED: CEFTRIAXONE 250 MG INJ IM ONE (13:30)
[2019-01-11] MEDS ORDERED: LIDOCAINE 1% (MDV) 20 ML INJ SC ONE (13:30)
== END 2019-01-11 13:18 | disposition home or self-care (01) ==
LOC: FTE 12:11
DX: L02.415 Cutaneous abscess of right lower limb (principal); I10 Essential (primary) hypertension; Z79.82 Long term (current) use of aspirin
CPT/HCPCS: 96372; J0696; Z7502; Z7610

== ENCOUNTER 2019-02-27 18:05 | Emergency (ER) | payer BC ==
[~2019-02-27] VITALS: Ht 152.4 cm; Wt 71.6 kg
[~2019-02-27 18:05] MED LIST changes: -ALBU8.5H8 INH; -AMOX1TAB10 PO; -AZIT250T PO; -FLUT9.9S16 NS; -IBUP-1541 PO; -LIDO20SO19 MM
[2019-02-27 18:08] VITALS: Ht 152.4 cm; Wt 71.6 kg
[2019-02-27 20:19] VITALS: BP 141/81; PULSE 81; RESP 18
[2019-02-27] MEDS ORDERED: AL HYDROX/MG HYDROX/SIMETH 30 ML CUP PO ONE (20:30)
[2019-02-27] MEDS ORDERED: LIDOCAINE 2% VISC 10 ML CUP PO ONE (20:30)
== END 2019-02-27 20:23 | disposition home or self-care (01) ==
LOC: FTE 18:05 → E/R 20:23
DX: J02.9 Acute pharyngitis, unspecified (principal); J45.909 Unspecified asthma, uncomplicated; I10 Essential (primary) hypertension; Z79.82 Long term (current) use of aspirin
CPT/HCPCS: 71045; Z7502; Z7610